=== PATIENT | female | born 1985 | race Caucasian/White ===

== ENCOUNTER 2017-07-10 21:27 | Inpatient (IN) | payer OTHER ==
[~2017-07-10] VITALS: Ht 167.6 cm; Wt 69.0 kg
[2017-07-11] VITALS (9 sets, daily range): BP systolic 90–129; BP diastolic 51–74; PULSE 98–128; RESP 16–34; TEMP 98.1–102; O2SAT 94–98
[2017-07-11] MEDS ORDERED: METO-309 PO (00:25)
[2017-07-11] MEDS ORDERED: OCUF0.3D LEFT EYE (00:49)
[2017-07-11] MEDS ORDERED: CEFTRIAXONE IM (00:49)
[2017-07-11] MEDS ORDERED: NYST15T TOPICAL (00:49)
[2017-07-11] MEDS ORDERED: ATRO1SOL11 LEFT EYE (00:49)
[2017-07-11] MEDS ORDERED: ISOPTO TEARS EACH EYE (00:49)
[2017-07-11] MEDS ORDERED: PRED1SUS LEFT EYE (00:49)
[2017-07-11] MEDS: SODIUM CHLOR 0.9% 1000 ML INJ 1,000 ML IV SCH ×3 (00:57→20:14)
[2017-07-11] MEDS ORDERED: NALOXONE HCL 0.4 MG/ML AMP IV PUSH PRN (01:00)
[2017-07-11] MEDS ORDERED: SODIUM CHLORIDE 0.9% FLUSH 10 ML FLUSH IV FLUSH PRN (01:00)
[2017-07-11] MEDS ORDERED: ONDANSETRON HCL 4 MG/2 ML VIAL IVP PRN (01:00)
[2017-07-11] MEDS ORDERED: METOPROLOL TARTRATE 50 MG TAB PO ONE (02:15)
--- NOTE | 2017-07-11 02:18 | HHI.HP ---
[facility] Service [facility] Primary Care Physician No Primary Care Physician Admission Diagnosis Binocular Iritis left eye . Diagnoses: Chief Complaint: Left eye visual loss Travel History International Travel<30 Days: No Contact w/Intl Traveler <30 Da: No History of Present Illness Ms. Luque is 31 y/o female with a history of untreated hepatitis C, IVDA, and tobacco abuse who was transferred from [facility] to [facility] for ophthalmology surgical evaluation by Dr. Kowalski. The patient is seen in her hospital room. She has been an inpatient at [facility] since 06/16/17 where she was being treated for tricuspid valve endocarditis and streptococcal septic shock. She reports she was initially seen at a hospital in [place] for pneumonia and was discharged from the ED with Zithromax Rx. She did not improve and went to [facility]. She reports that 1 day into her hospitalization, she developed respiratory failure and was intubated but eventually extubated. She is on a prolonged course of IV antibiotics. Her visual symptoms have been ongoing since one week ago when her left eyelid got "swollen" and she started to have visual deficits. She has been seen daily by an labor delivery rn at the other hospital. About three days ago, he determined that she would need surgery but they did not have a specialist available to perform the procedure she needs. She reports some right eye pain initially but then denies pain after EOM exam and penlight examination. Review of Systems Except as stated in HPI: all other systems reviewed are Neg Past Family Social History Past Medical History Hepatitis C - untreated IVDA Tobacco abuse Tricuspid valve endocarditis Sepsis Streptococcal septic shock Acute Respiratory failure Right pleural effusion s/p Thoracentesis . Past Surgical History Right thoracentesis . Reported Medications Reported Meds & Active Scripts Active Reported Pred Forte Opth 1% (Prednisolone Acetate Opth 1%) 1% Susp 1 Drop LEFT EYE Q4HR Ocuflox Opth Drops (Ofloxacin Opth Drops) 0.3 % Drops 1 Drop LEFT EYE QID [Isopto Tears 1.4%] 1 Drop EACH EYE QID [Ceftriaxone] 2 Mg IM DAILY Atropine Opth Drops 1% Soln 1 Drop LEFT EYE BID Lopressor (Metoprolol Tartrate) 50 Mg Tab 50 Mg PO TID . Allergies: Coded Allergies: No Known Allergies (Unverified , 07/11/17) Family History Sister with history of IVDA, no history of endocarditis . Social History Tobacco: last smoked 06/16/17 - plans to never start smoking again Alcohol: denies Illicit Drugs: IV heroin, last use 06/17/17 (while in hospital at [facility] in [place], [place]) - plans to never start using again . Physical Exam Vital Signs Vital Signs Date Time Temp Pulse Resp B/P (MAP) Pulse Ox O2 Delivery O2 Flow Rate FiO2 07/11/17 00:00 98.4 103 16 126/72 (90) 98 Physical Exam CONSTITUTIONAL: This is an awake, alert and oriented patient, in no apparent distress. INTEGUMENTARY: No rashes. Cool and dry. HEAD: Atraumatic. Normocephalic. EYES: No scleral icterus. Left eye ptosis, EOMI bilaterally, no photophobia with penlight exam, left visual field reported as dark with white wavy lines. Denies pain. ENT: Nose without bleeding, purulent drainage. NECK: Trachea midline. No JVD. CARDIOVASCULAR: Tachycardic rate, regular rhythm. +2 peripheral pulses. RESPIRATORY: Clear to auscultation. Breath sounds equal bilaterally. No wheezes , rales, or rhonchi. GASTROINTESTINAL: Abdomen soft, non-tender, nondistended. No guarding. MUSCULOSKELETAL: Extremities without clubbing, cyanosis, or edema. No calf tenderness. NEUROLOGICAL: Awake and alert. Motor and sensory grossly within normal limits. Normal speech. . Caprini VTE Risk Assessment Caprini VTE Risk Assessment: No/Low Risk (score <= 1) Caprini Risk Assessment Model Point Value = 1 Point Value = 2 Point Value = 3 Point Value = 5 Age 41-60 Minor surgery BMI > 25 kg/m2 Swollen legs Varicose veins or History of unexplained or recurrent spontaneous Oral contraceptives or hormone replacement Sepsis (< 1 month) Serious lung disease, including pneumonia (< 1 month) Abnormal pulmonary function Acute myocardial infarction Congestive heart failure (< 1 month) History of inflammatory bowel disease Medical patient at bed rest Age 61-74 Arthroscopic surgery Major open surgery (> 45 min) Laparoscopic surgery (> 45 min) Malignancy Confined to bed (> 72 hours) Immobilizing plaster cast Central venous access Age >= 75 History of VTE Family history of VTE Factor V Leiden Prothrombin [id number] Lupus anticoagulant Anticardiolipin antibodies Elevated serum homocysteine Heparin-induced thrombocytopenia Other congenital or acquired thrombophilia Stroke (< 1 month) Elective arthroplasty Hip, pelvis, or leg fracture Acute spinal cord injury (< 1 month) Prophylaxis Regimen Total Risk Factor Score Risk Level Prophylaxis Regimen 0-1 Low Early ambulation 2 Moderate Order ONE of the following: *Sequential Compression Device (SCD) *Heparin 5000 units SQ BID 3-4 Higher Order ONE of the following medications: *Heparin 5000 units SQ TID *Enoxaparin/Lovenox 40 mg SQ daily (WT < 150 kg, CrCl > 30 mL/min) *Enoxaparin/Lovenox 30 mg SQ daily (WT < 150 kg, CrCl > 10-29 mL/min) *Enoxaparin/Lovenox 30 mg SQ BID (WT < 150 kg, CrCl > 30 mL/min) AND/OR *Sequential Compression Device (SCD) 5 or more Highest Order ONE of the following medications: *Heparin 5000 units SQ TID (Preferred with Epidurals) *Enoxaparin/Lovenox 40 mg SQ daily (WT < 150 kg, CrCl > 30 mL/min) *Enoxaparin/Lovenox 30 mg SQ daily (WT < 150 kg, CrCl > 10-29 mL/min) *Enoxaparin/Lovenox 30 mg SQ BID (WT < 150 kg, CrCl > 30 mL/min) AND *Sequential Compression Device (SCD) Assessment and Plan Assessment and Plan Ms. Luque is 31 y/o female with a history of untreated hepatitis C, IVDA, and tobacco abuse who was transferred from [facility] to [facility] for ophthalmology surgical evaluation by Dr. Kowalski. Tricuspid valve endocarditis - Dr. Mcginnis discussed case with hospitalist from [facility] the transferring facility - Continue Ceftriaxone 2 gram IV q24h until 07/19 per ID at [facility] - continuous cardiac telemetry to monitor for arrhythmia Uveitis and endogenous endophthalmitis - patient was seen by labor delivery rn at [facility] - continue eye drops per transfer documentation Binocular Iritis left eye - consult Dr. Kowalski - plan for surgery in a.m. - NPO DVT prophylaxis - ambulatory . Discussed Condition With Dr. Mcginnis, Charge Nurse, RN, and patient . Physician Certification 2 Midnight Certification Type: Admission for Inpatient Services Order for Inpatient Services The services are ordered in accordance with Medicare regulations or non- Medicare payer requirements, as applicable. In the case of services not specified as inpatient-only, they are appropriately provided as inpatient services in accordance with the 2-midnight benchmark. Estimated LOS (days): 2 days is the estimated time the patient will need to remain in the hospital, assuming treatment plan goals are met and no additional complications. Post-Hospital Plan: Other (specify) (return to [facility]) Desiree Dove Jul 11, 2017 02:18
[2017-07-11] MEDS: ACETAMINOPHEN/HYDROcodone 325 MG/5 MG TAB PO PRN ×3 (02:33→20:02)
[2017-07-11] MEDS: ALPRAZolam 0.25 MG TAB PO PRN ×2 (05:23→17:58)
[2017-07-11] MEDS: prednisoLONE ACETATE 1% OPHT SUSP 5 ML BTL LEFT EYE SCH ×5 (05:23→20:03)
[2017-07-11] MEDS: ARTIFICIAL TEARS OPTH SOLN 15 ML BTL EACH EYE SCH ×4 (08:28→20:04)
[2017-07-11] MEDS: OFLOXACIN 0.3% OPTH SOLN 5 ML BTL LEFT EYE SCH ×3 (08:28→17:58)
[2017-07-11] MEDS: METOPROLOL TARTRATE 50 MG TAB PO SCH ×3 (08:29→17:58)
[2017-07-11] MEDS: ACETAMINOPHEN 325 MG TAB PO PRN ×2 (08:29→20:01)
[2017-07-11] MEDS: cefTRIAXone INJ 2,000 MG in SODIUM CHLORIDE 0.9% INJ 100 ML IV SCH (08:30)
[2017-07-11] MEDS: SODIUM CHLORIDE 0.9% FLUSH 10 ML FLUSH IV FLUSH SCH ×2 (08:30→20:14)
[2017-07-11] MEDS ORDERED: ATROPINE SULFATE 1% OPHT SOLN 2 ML BTL LEFT EYE SCH (09:00)
[2017-07-11] MEDS ORDERED: NYSTATIN 100,000 UNIT/GM CREAM 15 GM TOPICAL SCH (09:00)
[2017-07-11] MEDS ORDERED: PROPOFOL 200 MG/20 ML AMP IV ONE (12:00)
[2017-07-11] MEDS ORDERED: LIDOCAINE HCL 1% PF 5 ML SYRINGE OTHER ONE (12:00)
[2017-07-11] MEDS ORDERED: ONDANSETRON HCL 4 MG/2 ML VIAL IV PUSH ONE (12:00)
[2017-07-11] MEDS ORDERED: PHENYLEPH/NS 1000 MCG/10 ML SYR IV ONE (12:00)
--- NOTE | 2017-07-11 18:39 | HHI.PR ---
Addendum to Inpatient Note Additional Information Patient was seen and examined. Patient was transferred from another hospital for ophthalmology evaluation and possible surgical intervention. Discussed with day care home mother as well as multiple other people including case management regarding management of this patient. Per day care home mother request, after discussing with compliance as well as case management, patient was transported to the day care home mother office. If day care home mother cleared for discharge, patient can be discharged back to the original hospital where she came from. Continue current management. Alecia Zarate DO Jul 11, 2017 6:39 pm
[2017-07-11] MEDS ORDERED: LACTATED RINGER'S 1000 ML IV PRN (20:15)
[2017-07-11] MEDS ORDERED: POVIDONE IODINE 5% (ANTISEPSIS KIT) 4 APPLICATIONS EACH NARE PRN (20:15)
[2017-07-11] MEDS ORDERED: CHLORHEXIDINE GLUCONATE 2 % 1 PACK (2 CLOTHS) TOPICAL PRN (20:15)
[2017-07-11] MEDS: PHENYLEPHRINE HCL 2.5 % OPTH SOLN 15 ML BTL LEFT EYE SCH ×4 (20:50→21:36)
[2017-07-11] MEDS ORDERED: BALANCED SALT SOLN OPHT IRRIG 15 ML BTL ONE (20:51)
[2017-07-11] MEDS ORDERED: DEXAMETHASONE SOD PHOS 4 MG/ML VIAL ONE (20:51)
[2017-07-11] MEDS ORDERED: TRIAMCINOLONE ACETONIDE 40 MG/ML VIAL ONE (20:51)
[2017-07-11] MEDS ORDERED: ceFAZolin INJ 1,000 MG VIAL ONE (20:51)
[2017-07-11] MEDS ORDERED: TOBRAMYCIN/DEXAMETHASONE OPTH OINT 3.5 GM TUBE ONE (20:51)
[2017-07-11] MEDS ORDERED: STERILE WATER FOR INJECTION 20 ML VIAL ONE (20:51)
[2017-07-11] MEDS ORDERED: EPINEPHrine HCL (1:1000) 1 MG/ML VIAL ONE ×2 (20:52→22:25)
[2017-07-11] MEDS: CYCLOPENTOLATE HCL 1% OPHT SOLN 2 ML BTL LEFT EYE SCH ×4 (20:52→21:36)
[2017-07-11] MEDS: TROPICAMIDE 1% OPHT SOLN 15 ML BTL LEFT EYE SCH ×4 (20:52→21:36)
[2017-07-11] MEDS: ATROPINE SULFATE 1% OPHT SOLN 2 ML BTL LEFT EYE SCH ×4 (20:53→21:36)
[2017-07-11] MEDS ORDERED: CEFTAZIDIME LEFT EYE ONE (23:00)
[2017-07-11] MEDS ORDERED: [UNRECOGNIZED DRUG - OTHER] LEFT EYE ONE (23:00)
[2017-07-11] MEDS ORDERED: [UNRECOGNIZED DRUG - OTHER] LEFT EYE ONE (23:00)
[2017-07-11] MEDS ORDERED: VANCOMYCIN 1 MG/0.1 ML LEFT EYE ONE (23:00)
[2017-07-12] MEDS ORDERED: MORPHINE SULFATE 2 MG/ML SYRINGE ONE (01:53)
[2017-07-12] MEDS ORDERED: DO NOT ADM ANY ANTICOAGULANT DRUGS PRN (02:00)
[2017-07-12 02:30] VITALS: BP 110/69; PULSE 112; RESP 16; TEMP 98.4; O2SAT 94
--- NOTE | 2017-07-12 02:30 | MP ---
cc: Shivam Kowalski MD DATE OF OPERATION: PREOPERATIVE DIAGNOSIS: Severe endogenous endophthalmitis, dense cataract, iris/pupil synechiae, iris [place], no light perception vision left eye, total retinal detachment. POSTOPERATIVE DIAGNOSIS: Severe endogenous endophthalmitis, dense cataract, iris/pupil synechiae, iris [place], no light perception vision left eye, total retinal detachment. PROCEDURE PERFORMED: Pars plana vitrectomy, pars plana lensectomy, intravitreal antibiotic injection, retinal detachment repair, left eye. ANESTHESIA: Dr. Hall, general. COMPLICATIONS: None. ESTIMATED BLOOD LOSS: Less than 1 mL. INDICATIONS FOR PROCEDURE: This patient was hospitalized in [place] with a streptococcal sepsis, was in a coma for approximately 1 week, also found to have endocarditis and pneumonia. When the patient awoke from the coma, patient had no vision in her left eye. Approximately 1 week after awakening from her coma, the patient was transferred to [facility] to address her ocular condition. The patient was seen, confirmed no light perception vision in her left eye. 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 Treatment options were discussed with the patient. The patient adamantly refused intravitreal antibiotic injection to clear the infection. The patient remains on IV antibiotic therapy without resolution. Pars plana vitrectomy with lensectomy and intravitreal antibiotic placement was planned in hopes to clear infection. The patient understands the possibility and likelihood of remaining without vision given the severity and chronicity of her condition. The patient again reports no light perception since awakening from a coma approximately 1 week ago, and no light perception was confirmed in the clinic. DESCRIPTION OF PROCEDURE: The patient was brought to the operating room. General anesthesia was established after informed consent was obtained. The left eye was prepped and draped in sterile fashion. Betadine in the conjunctival fornix. A 3-port pars plana vitrectomy was established with self-retaining infusion cannula. The posterior pole was attempted to be visualized using the Biome. Visualization was very limited, with dense cataract. The cataract was removed with pars plana lensectomy using the vitrector. The anterior vitreous was also removed with vitrectomy. The lens capsule was removed with end grasping forceps. Dense vitreous debris was carefully removed using the vitrector and light pipe. Vitreous tractional bands were also removed and freed from the peripheral and mid peripheral retina using vitrectomy and end grasping forceps. Subretinal and retinal infiltrates were seen in the mid periphery and peripheral retina. A subretinal, retinal and preretinal mass with necrotic debris and necrotic holes were seen centered through the macula. The preretinal component was carefully debulked, with attention paid to avoid undue retinal traction. Scleral depressed examination revealed some far peripheral retinal bands, which were removed with vitrectomy. Air-fluid exchange was carried out and subretinal fluid removed. Peripheral and mid peripheral retina was reattached. The macula was reattached with some necrotic debris remaining. Subretinal and retinal infiltrates were seen in the mid peripheral and peripheral retina. Vancomycin 0.25 mg was given, ceftazidime 0.5 mg was given, both intravitreally. Intravitreal silicone oil was placed. Inferior peripheral iridectomy was made. Trocars were removed and sclerotomy was closed. Conjunctiva was reapproximated with 6-0 plain gut after sclerotomy was closed with 7-0 Vicryl. Subconjunctival injection of Ancef and dexamethasone was given. The eye was patched with tobramycin ointment. The patient was brought to the recovery room in stable condition. The patient will maintain a facedown position when able. The patient will continue followup with [facility] and doctors local to the [facility] when able. MD ZIA Kelsey/VENKATESH , 01:53 AM , 02:29 AM LEX
[2017-07-12] MEDS ORDERED: ACETAMINOPHEN/HYDROcodone 325 MG/10 MG TAB PO ONE (02:45)
[2017-07-12] MEDS: SODIUM CHLOR 0.9% 1000 ML INJ 1,000 ML IV SCH ×2 (03:56→16:29)
[2017-07-12] MEDS: ACETAMINOPHEN/HYDROcodone 325 MG/5 MG TAB PO PRN ×3 (07:58→20:04)
[2017-07-12] MEDS: METOPROLOL TARTRATE 50 MG TAB PO SCH ×3 (07:59→17:02)
[2017-07-12] MEDS: cefTRIAXone INJ 2,000 MG in SODIUM CHLORIDE 0.9% INJ 100 ML IV SCH (07:59)
[2017-07-12 08:00] VITALS: BP 106/58; PULSE 113; RESP 22; TEMP 98.4; O2SAT 96
[2017-07-12] MEDS: SODIUM CHLORIDE 0.9% FLUSH 10 ML FLUSH IV FLUSH SCH ×2 (08:09→20:10)
[2017-07-12] MEDS ORDERED: ATROPINE SULFATE 1% OPHT SOLN 5 ML BTL LEFT EYE SCH (09:00)
[2017-07-12] MEDS ORDERED: prednisoLONE ACETATE 1% OPHT SUSP 5 ML BTL LEFT EYE SCH ×2 (09:00)
[2017-07-12 10:53] LABS: AUTOMATED NEUTROPHIL # 5.1 TH/MM3 (1.8-7.7); BASOPHIL % 0.5 % (0.0-2.0); EOSINOPHIL % 0.2 % (0.0-4.0); HEMATOCRIT 26.8 % (35.0-46.0); HEMOGLOBIN 8.7 GM/DL (11.6-15.3); LYMPH % 26.6 % (9.0-44.0); LYMPHOCYTE # 2.1 TH/MM3 (1.0-4.8); MEAN CELL VOLUME 81.6 FL (80.0-100.0); MEAN CORPUSCULAR HEMOGLOBIN 26.4 PG (27.0-34.0); MEAN CORPUSCULAR HGB CONC 32.4 % (32.0-36.0); MEAN PLATELET VOLUME 7.1 FL (7.0-11.0); MONO % 7.6 % (0.0-8.0); MONOCYTE # 0.6 TH/MM3 (0-0.9); NEUT % 65.1 % (16.0-70.0); PLATELET COUNT 267 TH/MM3 (150-450); RED BLOOD COUNT 3.28 MIL/MM3 (4.00-5.30); RED CELL DISTRIBUTION WIDTH 18.4 % (11.6-17.2); WHITE BLOOD COUNT 7.9 TH/MM3 (4.0-11.0)
[2017-07-12 10:58] LABS: ALKALINE PHOSPHATASE 151 U/L (45-117); ALT (GPT) 24 U/L (10-53); TOTAL BILIRUBIN ADULT 1.1 MG/DL (0.2-1.0); TOTAL PROTEIN 7.7 GM/DL (6.4-8.2)
[2017-07-12] MEDS: ALPRAZolam 0.25 MG TAB PO PRN ×2 (11:07→23:04)
[2017-07-12 11:08] LABS: ALBUMIN 1.9 GM/DL (3.4-5.0); AST (GOT) 44 U/L (15-37); BICARBONATE 23.3 MEQ/L (21.0-32.0); BLOOD UREA NITROGEN 11 MG/DL (7-18); CALCIUM 8.1 MG/DL (8.5-10.1); CHLORIDE 107 MEQ/L (98-107); CREATININE 0.67 MG/DL (0.50-1.00); GLOMERULAR FILTRATION RATE 102 ML/MIN (>89); GLUCOSE,RANDOM 118 MG/DL (74-106); SODIUM (NA) 139 MEQ/L (136-145)
[2017-07-12] MEDS: ARTIFICIAL TEARS OPTH SOLN 15 ML BTL EACH EYE SCH ×4 (11:27→20:07)
[2017-07-12 12:00] VITALS: BP 92/65; PULSE 105; RESP 24; TEMP 98.6; O2SAT 94
--- NOTE | 2017-07-12 12:09 | HHI.PR ---
Subjective Remarks Follow-up for severe endogenous endophthalmitis, left retinal detachment, tricuspid endocarditis, IV drug use. Patient is currently doing well. She underwent surgical intervention by ophthalmology on 07/12/2017. Currently complains of inadequate pain management. No fever or chills. Objective Vitals Vital Signs Date Time Temp Pulse Resp B/P (MAP) Pulse Ox O2 Delivery O2 Flow Rate FiO2 07/12/17 08:00 98.4 113 22 106/58 (74) 96 07/12/17 02:30 98.4 112 16 110/69 (83) 94 07/12/17 02:00 112 21 110/60 (77) 95 Room Air 07/12/17 01:45 98.4 116 22 108/56 (73) 97 Room Air 07/11/17 21:25 98.5 07/11/17 20:00 102.0 110 16 104/61 (75) 94 07/11/17 12:00 98.1 98 16 90/51 (64) 94 I/O 07/11/17 07/11/17 07/11/17 07/12/17 07/12/17 07/12/17 07:00 15:00 23:00 07:00 15:00 23:00 Intake Total 0 ml 1100 ml 1340 ml 336 ml Balance 0 ml 1100 ml 1340 ml 336 ml Intake Oral 0 ml 340 ml 236 ml IV Total 1100 ml 100 ml Other 1000 ml # Voids 1 3 2 # Bowel Movements 0 0 0 Result Diagram: 07/12/17 1009 07/12/17 1009 Objective Remarks GENERAL: Alert, oriented 3, NAD. SKIN: Warm and dry. HEAD: Normocephalic. EYES: No scleral icterus. Left eye covered with dressing. NECK: Supple, trachea midline. No JVD or lymphadenopathy. CARDIOVASCULAR: Regular rate and rhythm without murmurs, gallops, or rubs. RESPIRATORY: Breath sounds equal bilaterally. No accessory muscle use. GASTROINTESTINAL: Abdomen soft, non-tender, nondistended. MUSCULOSKELETAL: No cyanosis, or edema. BACK: Nontender without obvious deformity. No CVA tenderness. Procedures 07/12/2017 Pars plana vitrectomy, pars plana lensectomy, intravitreal antibiotic injection, retinal detachment repair, left eye. A/P Assessment and Plan Ms. Luque is 31 y/o female with a history of untreated hepatitis C, IVDA, and tobacco abuse who was transferred from [facility] to [facility] for ophthalmology surgical evaluation by Dr. Kowalski. Tricuspid valve endocarditis - Dr. Mcginnis discussed case with hospitalist from [facility] the transferring facility - Continue Ceftriaxone 2 gram IV q24h until 07/19 per ID at [facility] - Acetaminophen, [place] as needed for pain. Increase frequency of [place]. Uveitis and endogenous endophthalmitis Left Retinal detachment - patient was seen by warehouse sorter at [facility] - Patient was evaluated by warehouse sorter Dr. Kowalski. Patient underwent ophthalmological surgical intervention on 07/12/2017. Full code. Ambulation. Discharge plan: Probable discharge back to [facility] once ophthalmologic clears for discharge. Alecia Zarate DO Jul 12, 2017 12:09 pm
[2017-07-12 12:36] VITALS: O2SAT 95
[2017-07-12] MEDS: prednisoLONE ACETATE 1% OPHT SUSP 5 ML BTL LEFT EYE SCH ×3 (13:54→20:08)
[2017-07-12] MEDS: ATROPINE SULFATE 1% OPHT SOLN 5 ML BTL LEFT EYE SCH ×2 (13:56→20:08)
[2017-07-12] MEDS: MOXIFLOXACIN 0.5% OPHT SOLN 3 ML BTL LEFT EYE SCH ×3 (13:58→20:08)
[2017-07-12 16:00] VITALS: BP 94/61; PULSE 113; RESP 20; TEMP 101; O2SAT 96
[2017-07-12] MEDS: ACETAMINOPHEN 325 MG TAB PO PRN (17:02)
[2017-07-12] MEDS: TOBRAMYCIN/DEXAMETHASONE OPTH OINT 3.5 GM TUBE LEFT EYE SCH (17:04)
--- NOTE | 2017-07-12 17:17 | EKG ---
Date Performed: 07/11/2017 Time Performed: 20:32:09 PTAGE: 31 years EKG: SINUS TACHYCARDIA WITH OCCASIONAL VENTRICULAR PREMATURE COMPLEXES NONSPECIFIC T-WAVE ABNORM ALITY ABNORMAL RHYTHM ECG NO PREVIOUS TRACING DOCTOR: Huseyin Trevizo Interpretating Date/Time 07/12/2017 17:16:18
[2017-07-12 20:00] VITALS: BP 100/58; PULSE 105; RESP 17; TEMP 98.7; O2SAT 94
[2017-07-12] MEDS: guaiFENesin/DEXTROMETHORPHAN 200 MG/20 MG/10 ML CUP PO PRN ×2 (20:04→23:04)
[2017-07-13] VITALS (8 sets, daily range): BP systolic 103–128; BP diastolic 58–88; PULSE 101–130; RESP 17–22; TEMP 98.2–103; O2SAT 92–95
[2017-07-13] MEDS: ACETAMINOPHEN 325 MG TAB PO PRN ×3 (02:00→23:57)
[2017-07-13] MEDS: ACETAMINOPHEN/HYDROcodone 325 MG/5 MG TAB PO PRN ×4 (02:00→22:53)
[2017-07-13] MEDS: guaiFENesin/DEXTROMETHORPHAN 200 MG/20 MG/10 ML CUP PO PRN ×6 (03:02→23:57)
--- NOTE | 2017-07-13 03:56 | RADRPT ---
EXAM DATE/TIME: 07/13/2017 03:20 [facility] COMPARISON: No previous studies available for comparison. INDICATIONS : Cough. MEDICAL HISTORY : None. SURGICAL HISTORY : None. ENCOUNTER: Subsequent ACUITY: 1 day PAIN SCORE: Non-responsive. LOCATION: Bilateral chest FINDINGS: Single AP view of the chest. Bilateral mid to lower lung zone opacity and pulmonary vasculature indis tinctness. Prominence of the central pulmonary vasculature. Moderate cardiac silhouette enlargement. Small bilateral pleural effusions. No evidence of pneumothorax. CONCLUSION: Cardiac silhouette enlargement, bilateral pulmonary opacity likely representing mild pulmonary edema, and bilateral small pleural effusions. Rolf Carvajal MD on July 13, 2017 at 3:54 Board Certified Radiologist. This report was verified electronically.
[2017-07-13] MEDS: ARTIFICIAL TEARS OPTH SOLN 15 ML BTL EACH EYE SCH ×4 (07:35→20:16)
[2017-07-13] MEDS: METOPROLOL TARTRATE 50 MG TAB PO SCH ×3 (07:36→17:54)
[2017-07-13] MEDS: cefTRIAXone INJ 2,000 MG in SODIUM CHLORIDE 0.9% INJ 100 ML IV SCH (07:37)
[2017-07-13] MEDS: SODIUM CHLORIDE 0.9% FLUSH 10 ML FLUSH IV FLUSH SCH ×2 (07:37→20:23)
[2017-07-13] MEDS: prednisoLONE ACETATE 1% OPHT SUSP 5 ML BTL LEFT EYE SCH ×4 (07:39→20:17)
[2017-07-13] MEDS: TOBRAMYCIN/DEXAMETHASONE OPTH OINT 3.5 GM TUBE LEFT EYE SCH ×3 (07:40→17:56)
[2017-07-13] MEDS: MOXIFLOXACIN 0.5% OPHT SOLN 3 ML BTL LEFT EYE SCH ×4 (07:40→20:16)
[2017-07-13] MEDS: ATROPINE SULFATE 1% OPHT SOLN 5 ML BTL LEFT EYE SCH ×2 (07:40→20:16)
--- NOTE | 2017-07-13 10:57 | HHI.PR ---
Subjective Remarks Follow-up for severe endogenous endophthalmitis, left retinal detachment, tricuspid endocarditis, IV drug use. Patient is resting in bed, eye patch is discontinued per Vice President Of Finance. She has been having persistent fever, cough. Objective Vitals Vital Signs Date Time Temp Pulse Resp B/P (MAP) Pulse Ox O2 Delivery O2 Flow Rate FiO2 07/13/17 08:00 100.8 130 18 128/61 (83) 95 07/13/17 04:00 99.3 129 17 106/62 (77) 92 07/13/17 02:02 102.7 07/13/17 00:00 98.2 109 17 127/88 (101) 93 07/12/17 20:00 98.7 105 17 100/58 (72) 94 07/12/17 16:00 101.0 113 20 94/61 (72) 96 07/12/17 12:36 95 07/12/17 12:00 98.6 105 24 92/65 (74) 94 I/O 07/12/17 07/12/17 07/12/17 07/13/17 07/13/17 07/13/17 07:00 15:00 23:00 07:00 15:00 23:00 Intake Total 1340 ml 336 ml 2200 ml 540 ml Balance 1340 ml 336 ml 2200 ml 540 ml Intake Oral 340 ml 236 ml 2200 ml 240 ml IV Total 100 ml 300 ml Other 1000 ml # Voids 2 6 3 # Bowel Movements 0 1 Result Diagram: 07/12/17 1009 07/12/17 1009 Imaging Last Impressions Chest X-Ray 07/13/17 0000 Signed Impressions: Service Date/Time: Thursday, July 13, 2017 03:20 - CONCLUSION: Cardiac silhouette enlargement, bilateral pulmonary opacity likely representing mild pulmonary edema, and bilateral small pleural effusions. Rolf Carvajal MD Objective Remarks GENERAL: Alert, oriented 3, NAD. SKIN: Warm and dry. HEAD: Normocephalic. EYES: No scleral icterus. Left eye covered with dressing. NECK: Supple, trachea midline. No JVD or lymphadenopathy. CARDIOVASCULAR: Tachycardic without murmurs, gallops, or rubs. RESPIRATORY: Moderate air entry, right lung diminished breath sound. No accessory muscle use. GASTROINTESTINAL: Abdomen soft, non-tender, nondistended. MUSCULOSKELETAL: No cyanosis, or edema. BACK: Nontender without obvious deformity. No CVA tenderness. Procedures 07/12/2017 Pars plana vitrectomy, pars plana lensectomy, intravitreal antibiotic injection, retinal detachment repair, left eye. A/P Assessment and Plan Ms. Luque is 31 y/o female with a history of untreated hepatitis C, IVDA, and tobacco abuse who was transferred from [facility] to [facility] for ophthalmology surgical evaluation by Dr. Kowalski. Tricuspid valve endocarditis - Dr. Mcginnis discussed case with hospitalist from [facility] the transferring facility - Continue Ceftriaxone 2 gram IV q24h until 07/19 per ID at [facility] - Acetaminophen, [place] as needed for pain. Increase frequency of [place]. Sepsis (Fever above 101, resp rate over 20 on 07/12/2017, tricuspid endocarditis) . - Will obtain blood cultures, lactic acid, CBC, UA today - CT chest without contrast and if needed, will obtain thoracentesis. - Infection disease consult. Uveitis and endogenous endophthalmitis Left Retinal detachment - patient was seen by fire lookout at [facility] - Patient was evaluated by fire lookout Dr. Kowalski. Patient underwent ophthalmological surgical intervention on 07/12/2017. Full code. Ambulation. Alecia Zarate DO Jul 13, 2017 10:57 am
[2017-07-13] MEDS: ALPRAZolam 0.25 MG TAB PO PRN ×2 (10:59→22:52)
--- NOTE | 2017-07-13 11:49 | RADRPT ---
EXAM DATE/TIME: 07/13/2017 11:20 [facility] COMPARISON: CHEST SINGLE AP, July 13, 2017, 3:20. INDICATIONS : Abnormal chest x-ray. RADIATION DOSE: 8.69 CTDIvol (mGy) MEDICAL HISTORY : Encephalitis. Hepatitis C. tricuspid endocarditis SURGICAL HISTORY : None. ENCOUNTER: Initial ACUITY: 1 day PAIN SCALE: 0/10 LOCATION: Bilateral chest TECHNIQUE: Volumetric scanning of the chest was performed. Using automated exposure control and adjustment of t he mA and/or kV according to patient size, radiation dose was kept as low as reasonably achievable to obtain optimal diagnostic quality images. DICOM format image data is available electronically for r eview and comparison. Follow-up recommendations for detected pulmonary nodules are based at a minimum on nodule size and pa tient risk factors according to Fleischner Society Guidelines. FINDINGS: LUNGS: The lungs are significant for a large heterogeneous fluid collection involving the right lower lobe w ith a large air-fluid level. Findings are consistent with a large abscess. There is adjacent compress mabel atelectasis of the residual aerated portion of the right lower lobe. There is a small left-sided pleural effusion present. Multifocal airspace consolidation involving the right upper lobe, right low er lobe left upper lobe and left lower lobe. PLEURAE: Small left-sided pleural effusion. The fluid identified in the right appears to be within the substan ce of the right lower lobe. MEDIASTINUM: The heart and great vessels demonstrate no acute abnormality. There is no mediastinal or hilar lymph adenopathy. AXILLAE: Within normal limits. No lymphadenopathy. MUSCULOSKELETAL: Within normal limits for patient age. MISCELLANEOUS: The visualized upper abdominal organs demonstrate no acute abnormality. CONCLUSION: Multifocal airspace consolidation and small left lower lobe pleural effusion. Large abscess involving the right lower lobe. Sravanthi Lane MD on July 13, 2017 at 11:42 Board Certified Radiologist. This report was verified electronically.
[2017-07-13 12:46] LABS: AUTOMATED NEUTROPHIL # 3.5 TH/MM3 (1.8-7.7); BASOPHIL % 0.2 % (0.0-2.0); EOSINOPHIL % 0.7 % (0.0-4.0); HEMATOCRIT 25.2 % (35.0-46.0); HEMOGLOBIN 8.2 GM/DL (11.6-15.3); LYMPH % 33.4 % (9.0-44.0); LYMPHOCYTE # 2.1 TH/MM3 (1.0-4.8); MEAN CORPUSCULAR HEMOGLOBIN 26.9 PG (27.0-34.0); MEAN CORPUSCULAR HGB CONC 32.8 % (32.0-36.0); MEAN PLATELET VOLUME 7.1 FL (7.0-11.0); MONO % 9.3 % (0.0-8.0); MONOCYTE # 0.6 TH/MM3 (0-0.9); NEUT % 56.4 % (16.0-70.0); PLATELET COUNT 229 TH/MM3 (150-450); RED BLOOD COUNT 3.07 MIL/MM3 (4.00-5.30); RED CELL DISTRIBUTION WIDTH 17.8 % (11.6-17.2); WHITE BLOOD COUNT 6.2 TH/MM3 (4.0-11.0)
[2017-07-13 14:42] LABS: LACTIC ACID SEPSIS PROTOCOL 2.2 mmol/L (0.4-2.0)
--- NOTE | 2017-07-13 16:05 | PD.ID.CON ---
History of Present Illness Service Infectious disease Consult Requested By Hospitalist service Reason for Consult Evaluation and management of tricuspid valve endocarditis, persistent fevers Primary Care Physician No Primary Care Physician Diagnoses: History of Present Illness Patient seen and examined with Dr. Gabriel This is a 31-year-old female with past medical history significant for hepatitis C-treatment luis and IV drug use who was transferred from [facility] to [facility] for ophthalmology surgical evaluation for severe left eye endogenous endophthalmitis. Patient was admitted to [facility] on 06/16/17 for septic emboli, sepsis, endocarditis and impending respiratory failure. She has been treated for tricuspid valve endocarditis and streptococcal septic shock. Reportedly, patient was initially seen at [facility] for pneumonia and was discharged from the ED with a Zithromax prescription. After failing to improve, she went went to [facility] and with in a day of her hospitalization developed respiratory failure and required intubation. Blood culture positive for Streptococcus mitis. She underwent a US guided thoracentesis right side with 1000ml of turbid serosanguineous fluid removed. She was treated with IV Ceftriaxone and per her discharge instructions, she was to continue with IV ceftriaxone through . Approximately one week ago, she began to have visual deficits in the left eye with swelling. She was seen daily by machine silk screen printer at the other facility and 3 days ago it was determined that she needed surgical intervention with subsequent transfer to our facility for ophthalmology surgical evaluation by Dr. Kowalski. 07/12/17, patient underwent Pars plana vitrectomy, pars plana lensectomy, intravitreal antibiotic injection, retinal detachment repair, left eye performed by Dr. Kowalski. During hospitalization here at [facility], she's had persistent cough and fevers. Infectious disease consultation was requested for evaluation and management of persistent fevers and tricuspid valve endocarditis. Patient is currently awake and alert lying in bed. She is a poor historian and much of the medical history is obtained from review of previous medical records and our EMR. She complains of fever, chills and sweats. She complains of persistent cough with brownish sputum production. She has difficulty with breathing. She denies any chest pain. Currently, her fever is 103. She is tachycardic with a heart rate of 114. White count is 6.2. Blood cultures are pending. Lactic acid is 2.2. (Lashon Freeman) Review of Systems Except as stated in HPI: all other systems reviewed are Neg (Lashon Freeman) Past Family Social History Allergies: Coded Allergies: No Known Allergies (Unverified , 07/11/17) Past Medical History IVDU severe endogenous endophthalmitis, left eye retinal detachment, left eye Hepatitis C, treatment luis Tricuspid valve endocarditis Streptococcal septic shock Sepsis Acute respiratory failure Right pleural effusion status post thoracentesis Past Surgical History Right thoracentesis Pars plana vitrectomy, pars plana lensectomy, intravitreal antibiotic injection, retinal detachment repair, left eye. Reported Medications Pred Forte Opth 1% (Prednisolone Acetate Opth 1%) 1% Susp 1 Drop LEFT EYE Q4HR Ocuflox Opth Drops (Ofloxacin Opth Drops) 0.3 % Drops 1 Drop LEFT EYE QID [Isopto Tears 1.4%] 1 Drop EACH EYE QID [Ceftriaxone] 2 Mg IM DAILY Atropine Opth Drops 1% Soln 1 Drop LEFT EYE BID Lopressor (Metoprolol Tartrate) 50 Mg Tab 50 Mg PO TID Active Ordered Medications Current Medications Medications (Trade) Dose Ordered Sig/Armin Route Start Time Stop Time Status Last Admin (NS Flush) 2 ml UNSCH PRN IV FLUSH 07/11/17 01:00 (NS Flush) 2 ml BID IV FLUSH 07/11/17 09:00 07/13/17 07:37 (Zofran Inj) 4 mg Q6H PRN IVP 07/11/17 01:00 (Narcan Inj) 0.4 mg UNSCH PRN IV PUSH 07/11/17 01:00 Ceftriaxone Sodium 2000 mg/ Sodium Chloride 100 ml @ 200 mls/hr Q24H IV 07/11/17 09:00 07/19/17 09:00 07/13/17 07:37 (Xanax) 0.25 mg Q12H PRN PO 07/11/17 02:30 07/13/17 10:59 (Tylenol) 650 mg Q4H PRN PO 07/11/17 02:30 07/13/17 02:00 (Lopressor) 50 mg TID PO 07/11/17 09:00 07/13/17 12:19 (Ocuflox 0.3% Opth Soln) 1 drop QID LEFT EYE 07/11/17 09:00 Future Hold 07/11/17 17:58 (Tears Naturale Opth Soln) 1 drop QID EACH EYE 07/11/17 09:00 07/12/17 11:27 (Vigamox 0.5% Opht Soln) 1 drop QID LEFT EYE 07/12/17 13:00 07/13/17 12:19 (Betadine 5% Antisepsis Kit) 1 applic OFFICE ELECTRICIAN PRN EACH NARE 07/11/17 20:15 07/14/17 20:14 (Pred Forte 1% Opth Susp) 1 drop QID LEFT EYE 07/12/17 13:00 07/13/17 12:21 (Isopto Atropine 1% Opth Soln) 1 drop BID LEFT EYE 07/12/17 13:00 07/13/17 07:40 ([place] 5-325 Mg) 1 tab Q6H PRN PO 07/12/17 12:00 07/13/17 14:58 (Tobradex Opth Oint) 1 applic TID LEFT EYE 07/12/17 18:00 07/13/17 12:20 (Robitussin Dm 200-20 Mg/10 ml Liq) 10 ml Q4H PRN PO 07/12/17 20:00 07/13/17 12:19 Family History Sister, IVDU Social History Patient has a history of tobacco use. She denies any alcohol use. She has a history of IVDU heroin and Morphine, last used 06/17/17 (while in hospital at [facility] in [place], [place]) (Lashon Freeman) Physical Exam Vital Signs Vital Signs Date Time Temp Pulse Resp B/P (MAP) Pulse Ox O2 Delivery O2 Flow Rate FiO2 07/13/17 13:09 93 21 07/13/17 12:00 99.5 114 20 103/69 (80) 93 07/13/17 08:00 100.8 130 18 128/61 (83) 95 07/13/17 04:00 99.3 129 17 106/62 (77) 92 07/13/17 02:02 102.7 07/13/17 00:00 98.2 109 17 127/88 (101) 93 07/12/17 20:00 98.7 105 17 100/58 (72) 94 07/12/17 16:00 101.0 113 20 94/61 (72) 96 Physical Exam GENERAL: This is a well-nourished, well-developed thin young female patient, in no apparent distress. Awake and alert. SKIN: No rashes, ecchymoses or lesions. Very warm to the touch. HEAD: Atraumatic. Normocephalic. No temporal or scalp tenderness. EYES: Pupil equal round and reactive right eye. Extraocular motions intact right eye. No scleral icterus, injection or drainage right eye. Left eye not assessed due to recent surgery. ENT: Nose without bleeding, purulent drainage. Throat without erythema, tonsillar hypertrophy or exudate. Uvula midline. Airway patent. NECK: Trachea midline. No lymphadenopathy. Supple, nontender, no meningeal signs. CARDIOVASCULAR: Tachycardic with 4-5/6 systolic murmur. RESPIRATORY: Diminished breath sounds on the right with crepitance noted in right lung base. No accessory muscle use. GASTROINTESTINAL: Abdomen soft, non-tender, nondistended. No hepato-splenomegaly , or palpable masses. No guarding. MUSCULOSKELETAL: Extremities without clubbing, cyanosis, or edema. No joint tenderness, effusion, or edema noted. No calf tenderness. NEUROLOGICAL: Awake and alert. Cranial nerves II through XII grossly intact. Motor and sensory grossly within normal limits. Normal speech. PSYCHIATRIC: Appropriate mood and affect. Normal judgment and insight. Laboratory Laboratory Tests Test 07/13/17 12:00 07/13/17 14:13 White Blood Count 6.2 Red Blood Count 3.07 Hemoglobin 8.2 Hematocrit 25.2 Mean Corpuscular Volume 82.0 Mean Corpuscular Hemoglobin 26.9 Mean Corpuscular Hemoglobin Concent 32.8 Red Cell Distribution Width 17.8 Platelet Count 229 Mean Platelet Volume 7.1 Neutrophils (%) (Auto) 56.4 Lymphocytes (%) (Auto) 33.4 Monocytes (%) (Auto) 9.3 Eosinophils (%) (Auto) 0.7 Basophils (%) (Auto) 0.2 Neutrophils # (Auto) 3.5 Lymphocytes # (Auto) 2.1 Monocytes # (Auto) 0.6 Eosinophils # (Auto) 0.0 Basophils # (Auto) 0.0 CBC Comment DIFF FINAL Differential Comment Lactic Acid Level 2.2 Date/Time Source Procedure Growth Status 07/13/17 12:17 Blood Peripheral Aerobic Blood Culture Pending Received 07/13/17 12:17 Blood Peripheral Anaerobic Blood Culture Pending Received 07/11/17 23:15 Fluid Other Fungal Smear - Final NO FUNGAL ELEMENTS SEEN. Resulted 07/11/17 23:15 Fluid Other Fungal Culture Pending Resulted 07/12/17 02:30 Abscess Face Fungal Smear Pending Ordered 07/12/17 02:30 Abscess Face Fungal Culture Pending Ordered (Lasohn Freeman) Result Diagram: 07/13/17 1200 07/12/17 1009 Imaging Last Impressions Chest X-Ray 07/13/17 0000 Signed Impressions: Service Date/Time: Thursday, July 13, 2017 03:20 - CONCLUSION: Cardiac silhouette enlargement, bilateral pulmonary opacity likely representing mild pulmonary edema, and bilateral small pleural effusions. Rolf Carvajal MD Chest CT 07/13/17 0000 Signed Impressions: Service Date/Time: Thursday, July 13, 2017 11:20 - CONCLUSION: Multifocal airspace consolidation and small left lower lobe pleural effusion. Large abscess involving the right lower lobe. Sravanthi Lane MD (Lashon Freeman) Assessment and Plan Assessment and Plan Sepsis secondary to strept mitis endocarditis and complications Right lung abscess/empyema likely from septic emboli Possible aspiration PNA/HCAP Hx of streptococcal septic shock Hx of septic emboli Hx of right pleural effusion s/p thoracentesis with fluid analysis cytology with both acute and chronic inflammatory cells and no malignancy, cx with no growth x 5 days -Chest x-ray reveals bilateral pulmonary opacity likely representing mild pulmonary edema and bilateral small pleural effusions, images reviewed by me -CT chest reveals multifocal airspace consolidation and small left lower lobe pleural effusion, large abscess involving the right lower lobe, images reviewed by me -blood culture positive for Streptococcus mitis -treated with IV Ceftriaxone Acute respiratory failure status post intubation and subsequent extubation on Left eye uveitis and endogenous endophthalmitis -s/p pars plana vitrectomy, pars plana lensectomy, intravitreal antibiotic injection, retinal detachment repair, left eye. Tricuspid valve endocarditis IVDU Hep C, treatment naive RECOMMENDATIONS: Continue on IV Ceftriaxone. Add IV Vancomycin, pharmacy to dose, target 15-20. CT guided thoracentesis right pleural effusion/abscess, send fluid for analysis Consult CTS for possible VATS or decortication procedure Monitor respiratory status closely 2D echo ordered obtain UDS obtain sputum cx obtain CRP follow up on blood culture results Discussed Condition With Patient, nursing staff (Lashon Freeman) Assessment and Plan The exam, history, and the medical decision-making described in the above note were completed with the assistance of the mid-level provider. I reviewed and agree with the findings presented. I attest that I had a [id number] encounter with the patient on the same day, and personally performed and documented my assessment and findings in the medical record. Reviewed chart from outside hospital. Tricuspid valve endocarditis from Strep Mitis was treated with Ceftriaxone IV. Thoracentesis tapped but no results available. CT imaging reviewed by me from [facility] discussed with Dr. Malik: CT guided thoracentesis. Depending on study results will consider CTS consult. Endopathalmitis Would recommend continue IV Rocephin and start vancomycin IV repeat blood cultures We will be able to provide further recommendations about the start and stop date of antibiotics based on thoracentesis and endocarditis follow-up. Discussed with the patient. (Nai Gabriel MD) Lashon Freeman Jul 13, 2017 16:05 Nai Gabriel MD Jul 13, 2017 17:34
[2017-07-13] MEDS ORDERED: Vancomycin Consult Pharmacy 1 EA OTHER SCH (16:30)
[2017-07-13] MEDS ORDERED: VANCOMYCIN 1,000 MG/NS 250 ML IV ONE ×2 (18:00)
[2017-07-13 23:52] LABS: BILIRUBIN, URINE NEG (NEG); BLOOD, URINE NEG (NEG); GLUCOSE,URINE NEG (NEG); KETONE, URINE NEG (NEG); MUCUS URINE FEW /lpf (OCC); NITRITE,URINE NEG (NEG); SQUAMOUS EPITHELIAL CELL URINE 1 /hpf (0-5); URINE COLOR LIGHT-YELLOW (YELLW/STRAW); URINE LEUKOCYTE ESTERASE NEG (NEG)
[2017-07-14] VITALS (9 sets, daily range): BP systolic 96–132; BP diastolic 63–80; PULSE 98–140; RESP 17–24; TEMP 97.7–101.2; O2SAT 91–96
[2017-07-14] MEDS: guaiFENesin/DEXTROMETHORPHAN 200 MG/20 MG/10 ML CUP PO PRN ×4 (03:41→23:53)
[2017-07-14] MEDS: VANCOMYCIN 1,000 MG/NS 250 ML IV SCH ×6 (03:41→17:22)
[2017-07-14] MEDS: ACETAMINOPHEN/HYDROcodone 325 MG/5 MG TAB PO PRN ×4 (05:37→23:53)
[2017-07-14 06:13] LABS: INTERNATIONAL NORMALIZED RATIO 1.2 RATIO; PROTHROMBIN TIME - PATIENT 11.9 SEC (9.8-11.6)
[2017-07-14 06:25] LABS: C-REACTIVE PROTEIN 18.4 MG/DL (0.00-0.30)
[2017-07-14 06:26] LABS: TOTAL PROTEIN 7.7 GM/DL (6.4-8.2)
[2017-07-14] MEDS: SODIUM CHLORIDE 0.9% FLUSH 10 ML FLUSH IV FLUSH SCH ×2 (07:51→19:49)
[2017-07-14] MEDS: METOPROLOL TARTRATE 50 MG TAB PO SCH ×3 (07:51→17:20)
[2017-07-14] MEDS: cefTRIAXone INJ 2,000 MG in SODIUM CHLORIDE 0.9% INJ 100 ML IV SCH (07:51)
[2017-07-14] MEDS: ACETAMINOPHEN 325 MG TAB PO PRN ×2 (07:51→19:48)
[2017-07-14] MEDS: MOXIFLOXACIN 0.5% OPHT SOLN 3 ML BTL LEFT EYE SCH ×4 (07:53→19:51)
[2017-07-14] MEDS: TOBRAMYCIN/DEXAMETHASONE OPTH OINT 3.5 GM TUBE LEFT EYE SCH ×4 (07:55→19:52)
[2017-07-14] MEDS: prednisoLONE ACETATE 1% OPHT SUSP 5 ML BTL LEFT EYE SCH ×4 (07:55→23:54)
[2017-07-14] MEDS: ATROPINE SULFATE 1% OPHT SOLN 5 ML BTL LEFT EYE SCH ×2 (07:55→19:51)
[2017-07-14] MEDS: ARTIFICIAL TEARS OPTH SOLN 15 ML BTL EACH EYE SCH ×4 (07:56→19:50)
[2017-07-14] MEDS ORDERED: fentaNYL CITRATE 250 MCG/5 ML AMP ONE (09:51)
[2017-07-14] MEDS ORDERED: MIDAZOLAM HCL 5 MG/5 ML VIAL ONE (09:51)
[2017-07-14] MEDS ORDERED: BUPIVACAINE HCL PF 0.75% 30 ML VIAL ONE ×2 (10:26→12:06)
--- NOTE | 2017-07-14 11:05 | RADRPT ---
EXAM DATE/TIME: 07/14/2017 10:58 [place] COMPARISON: No previous studies available for comparison. INDICATIONS : Post right side chest tube placement. MEDICAL HISTORY : None. SURGICAL HISTORY : None. ENCOUNTER: Subsequent ACUITY: 2 days PAIN SCORE: 0/10 LOCATION: Bilateral chest FINDINGS: Small bore chest tube in good position on the right with significant improvement in the empyema right lung. Patchy airspace disease in both lungs. Compensated cardiomegaly CONCLUSION: Chest tube on the right in good position Kaiser Wong MD FACR on July 14, 2017 at 11:02 Board Certified Radiologist. This report was verified electronically.
[2017-07-14 12:08] LABS: TOTAL PROTEIN,PLEURAL FLUID 1.6 GM/DL
--- NOTE | 2017-07-14 12:10 | RADRPT ---
EXAM DATE/TIME: 07/14/2017 10:20 INDICATIONS : Right chest abscess SEDATION TIME: 30 minutes MEDICATION(S): 1.) 5 mg midazolam (Versed) IV 2.) 250 mcg fentanyl (Sublimaze) IV DEVICE(S): 1.) 8 Fr Skater FLUID: Total volume of600 cc of louise fluid was removed. Fluid was sent for laboratory ordered studies. MEDICAL HISTORY : Hepatitis C. Cardiovascular disease. SURGICAL HISTORY : None. ENCOUNTER: Initial ACUITY: 1 day PAIN SCORE: 0/10 LOCATION: Right chest PROCEDURE: 1.) Conscious sedation with continuous EKG and oximetry monitoring. 2.) EKG and oximetry remained stable throughout the procedure. PROCEDURE : 1. CT guided chest tube placement. 2. Conscious sedation with continuous EKG and oximetry monitoring. The risks, benefits and alternatives to the procedure were explained and verbal and written consent w as obtained. The site was prepped in sterile fashion. Full sterile technique was used, including ca p, mask, sterile gloves and gown and a large sterile sheet. Hand hygiene and 2% chlorhexidine and/or betadine/alcohol prep was utilized per protocol for cutaneous antisepsis. The skin and subcutaneous tissues were infiltrated with local anesthetic solution. Using automated exposure control and adjus tment of the mA and/or kV according to patient size, radiation dose was kept as low as reasonably ach ievable to obtain optimal diagnostic quality images. DICOM format image data is available electronic ally for review and comparison. Under CT guidance 10-English chest tube was placed in the empyema. 600 cc of pus were removed. The l ongest trapped and will not reexpand to fill the void.. Catheter was placed to Pleur-evac suction 47 years. Conscious sedation was performed with the prescribed dosages and duration as above. The patient olga ated the procedure well and there were no complications. EKG and oximetry remained stable throughout the procedure. The patient was sent to post anesthesia recovery in stable condition. CONCLUSION: Uncomplicated 10-English chest tube placement on the right. Fluid was sent for Gram stain and culture. Kaiser Wong MD FACR on July 14, 2017 at 12:06 Board Certified Radiologist. This report was verified electronically.
--- NOTE | 2017-07-14 12:12 | MB ---
cc: Onel Malik MD DATE: 07/13/2017 REQUESTING PHYSICIAN: Dr. Nai Gabriel. REASON FOR CONSULTATION: Evaluate for pleural effusion and lung collapse . HISTORY OF PRESENT ILLNESS: Ms. Luque is a 32-year-old female with history of hepatitis C and endocarditis. Initially, she was admitted at [facility]. She was found to have septic emboli, sepsis, tricuspid valve endocarditis and septic shock. She was on a ventilator briefly. She was treated with antibiotics. She also had pleural effusion right thoracentesis done. She was found to endophthalmitis, that is why she is sent over here for management by an strategic solutions consultant. She has fever, has cough, with brownish sputum production. No hemoptysis, mild chest discomfort. No nausea or vomiting. She had a workup done. Her CT scan of the chest shows she has multifocal airspace consolidation and small left pleural effusion, as well as large abscess involving the right lower lobe. Her CBC showed WBC 16.2, hemoglobin 8.2, hematocrit 25.2, MCV 82, platelet count 229. Sodium 131, potassium 4.6, chloride 107, CO2 23, BUN 11, creatinine 0.67. PAST MEDICAL HISTORY: Significant history of recent endocarditis, history of hepatitis C. She has a retinal detachment in the left eye and no lesion in the left eye. MEDICATIONS: She is taking Robitussin-DM 10 mL, tobramycin eyedrops, moxifloxacin eye drops, prednisone eyedrops, atropine eyedrops, hydrocodone 1 tablet every 6 hours p.r.n., Rocephin 2 grams a day, Xanax as needed. ALLERGIES: NO KNOWN DRUG ALLERGIES. SOCIAL HISTORY: She is single and lives with her boyfriend, has a history of smoking and IV drug use. She works as a dancer. FAMILY HISTORY: She has no children. REVIEW OF SYSTEMS: She denies any weight loss. No headache or dizziness, has fever. No DVT or pulmonary embolism. No seizure, stroke or epilepsy. PHYSICAL EXAMINATION: GENERAL: MBMN WF, not in any acute distress. VITAL SIGNS: Her blood pressure 122/58, heart rate 127, temperature 103, respiratory rate 22. 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 Pupils are dilated because of the eye drops. NECK: Supple. JVD not raised. CHEST: Equal air entry bilaterally. She has decreased breath sounds at the right bases. HEART: S1, S2 normal. ABDOMEN: Benign. EXTREMITIES: No edema. IMPRESSION: 1. Right pleural effusion, possible empyema or abscess. 2. Left lung infiltrate and effusion. 3. Endocarditis. 4. Endophthalmitis. 5. IV drug use. 6. Nicotine use. PLAN: We will continue antibiotic per ID recommendations. She will need ultrasound-guided chest tube placement. If we are not able to drain the fluid, then she will need thoracic surgery consultation and VATS and thoracoscopy. Thank you, Dr. Rigo Goyal for this consult. MD KATIA Abraham/HUGH , 05:18 PM , 05:49 PM [email or web address]
[2017-07-14 12:17] LABS: PLEURAL FLUID POLYS (SEGS) ND %; PLEURAL FLUID RBC 0 /MM3 (0-0); PLEURAL FLUID WBC 112959 /MM3 (0-10)
--- NOTE | 2017-07-14 12:36 | HHI.PR ---
Subjective Remarks Follow-up for severe endogenous endophthalmitis, left retinal detachment, tricuspid endocarditis, IV drug use. Ms. Luque continues to have persistent fever. No chest pain, SOB. She is going for chest tube placement this morning. Objective Vitals Vital Signs Date Time Temp Pulse Resp B/P (MAP) Pulse Ox O2 Delivery O2 Flow Rate FiO2 07/14/17 11:50 115 19 103/65 (78) 93 07/14/17 11:20 115 18 102/70 (81) 93 07/14/17 11:05 97.7 111 18 116/63 (80) 91 07/14/17 09:01 100.2 07/14/17 08:00 101.2 140 24 114/65 (81) 96 07/14/17 04:00 99.2 126 18 123/63 (83) 94 07/14/17 00:00 100.1 116 18 132/73 (92) 92 07/13/17 20:00 98.9 101 18 109/69 (82) 92 07/13/17 16:00 103.0 127 22 122/58 (79) 92 07/13/17 13:09 93 21 I/O 07/13/17 07/13/17 07/13/17 07/14/17 07/14/17 07/14/17 07:00 15:00 23:00 07:00 15:00 23:00 Intake Total 540 ml 100 ml 250 ml 0 ml 350 ml Balance 540 ml 100 ml 250 ml 0 ml 350 ml Intake Oral 240 ml 0 ml IV Total 300 ml 100 ml 250 ml 350 ml # Voids 3 2 Result Diagram: 07/13/17 1200 07/12/17 1009 Imaging Last Impressions Chest X-Ray 07/14/17 0000 Signed Impressions: Service Date/Time: Friday, July 14, 2017 10:58 - CONCLUSION: Chest tube on the right in good position Kaiser Wong MD FACR Chest CT 07/13/17 0000 Signed Impressions: Service Date/Time: Thursday, July 13, 2017 11:20 - CONCLUSION: Multifocal airspace consolidation and small left lower lobe pleural effusion. Large abscess involving the right lower lobe. Sravanthi Lane MD Objective Remarks GENERAL: Alert, oriented 3, NAD. SKIN: Warm and dry. HEAD: Normocephalic. EYES: No scleral icterus. Left eye covered with dressing. NECK: Supple, trachea midline. No JVD or lymphadenopathy. CARDIOVASCULAR: Tachycardic without murmurs, gallops, or rubs. RESPIRATORY: Moderate air entry, right lung diminished breath sound. No accessory muscle use. GASTROINTESTINAL: Abdomen soft, non-tender, nondistended. MUSCULOSKELETAL: No cyanosis, or edema. BACK: Nontender without obvious deformity. No CVA tenderness. Procedures 07/12/2017 Pars plana vitrectomy, pars plana lensectomy, intravitreal antibiotic injection, retinal detachment repair, left eye. A/P Assessment and Plan Ms. Luque is 31 y/o female with a history of untreated hepatitis C, IVDA, and tobacco abuse who was transferred from [facility] to [facility] for ophthalmology surgical evaluation by Dr. Kowalski. Tricuspid valve endocarditis - Dr. Mcginnis discussed case with hospitalist from [facility] the transferring facility - Continue Ceftriaxone 2 gram IV q24h until 07/19 per ID at [facility] - Acetaminophen, [place] as needed for pain. Increase frequency of [place]. Sepsis (Fever above 101, resp rate over 20 on 07/12/2017, tricuspid endocarditis) . - Blood cx negative so far. - CT Chest shows right sided abscess. Patient underwent chest tube placement today by IR. - Infection disease consult. - If ID clears patient to go back to [facility], we can discharge patient. Waiting for ID to give input. Uveitis and endogenous endophthalmitis Left Retinal detachment - patient was seen by fur cleaner at [facility] - Patient was evaluated by fur cleaner Dr. Kowalski. Patient underwent ophthalmological surgical intervention on 07/12/2017 Full code. Ambulation. Alecia Zarate DO Jul 14, 2017 12:36 pm
[2017-07-14] MEDS: ALPRAZolam 0.25 MG TAB PO PRN ×2 (12:37→19:57)
--- NOTE | 2017-07-14 15:02 | HHI.IDPN ---
Subjective Subjective Remarks is a 31-year-old female with past medical history significant for hepatitis C-treatment luis and IV drug use who was transferred from [facility] to [facility] for ophthalmology surgical evaluation for severe left eye endogenous endophthalmitis. Patient was admitted to [facility] on 06/16/17 for septic emboli, sepsis, endocarditis and impending respiratory failure. She has been treated for tricuspid valve endocarditis and streptococcal septic shock. Reportedly, patient was initially seen at [facility] for pneumonia and was discharged from the ED with a Zithromax prescription. After failing to improve, she went went to [facility] and with in a day of her hospitalization developed respiratory failure and required intubation. Blood culture positive for Streptococcus mitis. She underwent a US guided thoracentesis right side with 1000ml of turbid serosanguineous fluid removed. She was treated with IV Ceftriaxone and per her discharge instructions, she was to continue with IV ceftriaxone through . Approximately one week ago, she began to have visual deficits in the left eye with swelling. She was seen daily by bicycle technician at the other facility and 3 days ago it was determined that she needed surgical intervention with subsequent transfer to our facility for ophthalmology surgical evaluation by Dr. Kowalski. 07/12/17, patient underwent Pars plana vitrectomy, pars plana lensectomy, intravitreal antibiotic injection, retinal detachment repair, left eye performed by Dr. Kowalski. During hospitalization here at [facility], she's had persistent cough and fevers. Infectious disease consultation was requested for evaluation and management of persistent fevers and tricuspid valve endocarditis. Patient is currently awake and alert lying in bed. She is a poor historian and much of the medical history is obtained from review of previous medical records and our EMR. She complains of fever, chills and sweats. She complains of persistent cough with brownish sputum production. She has difficulty with breathing. She denies any chest pain. Currently, her fever is 103. She is tachycardic with a heart rate of 114. White count is 6.2. Blood cultures are pending. Lactic acid is 2.2. Overnight events reviewed Fevers 101-1-3 F tachycardic BP borderline. Appears sick looking today. Uo ok. No rash No diarrhea Left eye no vision. Rt eye vision intact no floaters. Antibiotics Ceftriaxone IV Vanco IV Lines Line sites with no e.o infection Allergies: Coded Allergies: No Known Allergies (Unverified , 07/11/17) Objective . Vital Signs Date Time Temp Pulse Resp B/P (MAP) Pulse Ox O2 Delivery O2 Flow Rate FiO2 07/14/17 11:50 115 19 103/65 (78) 93 07/14/17 11:20 115 18 102/70 (81) 93 07/14/17 11:05 97.7 111 18 116/63 (80) 91 07/14/17 09:01 100.2 07/14/17 08:00 101.2 140 24 114/65 (81) 96 07/14/17 04:00 99.2 126 18 123/63 (83) 94 07/14/17 00:00 100.1 116 18 132/73 (92) 92 07/13/17 20:00 98.9 101 18 109/69 (82) 92 07/13/17 16:00 103.0 127 22 122/58 (79) 92 07/14/17 07/14/17 07/15/17 15:00 23:00 07:00 Intake Total 350 ml Balance 350 ml IV Total 350 ml . Laboratory Tests Test 07/13/17 12:00 White Blood Count 6.2 TH/MM3 Red Blood Count 3.07 MIL/MM3 Hemoglobin 8.2 GM/DL Hematocrit 25.2 % Mean Corpuscular Volume 82.0 FL Mean Corpuscular Hemoglobin 26.9 PG Mean Corpuscular Hemoglobin Concent 32.8 % Red Cell Distribution Width 17.8 % Platelet Count 229 TH/MM3 Mean Platelet Volume 7.1 FL Neutrophils (%) (Auto) 56.4 % Lymphocytes (%) (Auto) 33.4 % Monocytes (%) (Auto) 9.3 % Eosinophils (%) (Auto) 0.7 % Basophils (%) (Auto) 0.2 % Neutrophils # (Auto) 3.5 TH/MM3 Lymphocytes # (Auto) 2.1 TH/MM3 Monocytes # (Auto) 0.6 TH/MM3 Eosinophils # (Auto) 0.0 TH/MM3 Basophils # (Auto) 0.0 TH/MM3 CBC Comment DIFF FINAL Differential Comment Laboratory Tests Test 07/13/17 14:13 07/14/17 05:32 Lactic Acid Level 2.2 mmol/L 1.8 mmol/L Lactate Dehydrogenase 189 U/L C-Reactive Protein 18.40 MG/DL Total Protein 7.7 GM/DL Microbiology Date/Time Source Procedure Growth Status 07/13/17 12:17 Blood Peripheral Aerobic Blood Culture - Preliminary NO GROWTH IN 1 DAY Resulted 07/13/17 12:17 Blood Peripheral Anaerobic Blood Culture - Preliminary NO GROWTH IN 1 DAY Resulted 07/13/17 12:00 Blood Peripheral Aerobic Blood Culture - Preliminary NO GROWTH IN 1 DAY Resulted 07/13/17 12:00 Blood Peripheral Anaerobic Blood Culture - Preliminary NO GROWTH IN 1 DAY Resulted 07/14/17 10:30 Fluid Pleural Fluid Gram Stain Pending Received 07/14/17 10:30 Fluid Pleural Fluid Body Fluid Culture Pending Received 07/11/17 23:15 Fluid Other Fungal Smear - Final NO FUNGAL ELEMENTS SEEN. Resulted 07/11/17 23:15 Fluid Other Fungal Culture Pending Resulted 07/11/17 23:15 Fluid Other Acid Fast Stain - Final NO ACID FAST BACILLI SEEN Resulted 07/11/17 23:15 Fluid Other Mycobacterial Culture Pending Resulted 07/11/17 23:15 Fluid Other Gram Stain - Final Resulted 07/11/17 23:15 Fluid Other Body Fluid Culture - Preliminary NO GROWTH IN 48 HOURS. Resulted 07/12/17 02:30 Abscess Face Fungal Smear Pending Ordered 07/12/17 02:30 Abscess Face Fungal Culture Pending Ordered 07/12/17 02:30 Abscess Face Acid Fast Stain Pending Ordered 07/12/17 02:30 Abscess Face Mycobacterial Culture Pending Ordered 07/12/17 02:30 Abscess Face Gram Stain Pending Ordered 07/12/17 02:30 Abscess Face Wound Culture Pending Ordered Imaging Last Impressions Chest X-Ray 07/14/17 0000 Signed Impressions: Service Date/Time: Friday, July 14, 2017 10:58 - CONCLUSION: Chest tube on the right in good position Kaiser Wong MD FACR Chest Tube Insertion 07/14/17 0000 Signed Impressions: Service Date/Time: Friday, July 14, 2017 10:20 - CONCLUSION: Uncomplicated 10-Irish chest tube placement on the right. Fluid was sent for Gram stain and culture. Kaiser Wong MD FACR Chest CT 07/13/17 0000 Signed Impressions: Service Date/Time: Thursday, July 13, 2017 11:20 - CONCLUSION: Multifocal airspace consolidation and small left lower lobe pleural effusion. Large abscess involving the right lower lobe. Sravanthi Lane MD Physical Exam GENERAL: This is a well-nourished, well-developed thin young female patient, in no apparent distress. Awake and alert. SKIN: No rashes, ecchymoses or lesions. Very warm to the touch. HEAD: Atraumatic. Normocephalic. No temporal or scalp tenderness. EYES: Pupil equal round and reactive right eye. Extraocular motions intact right eye. No scleral icterus, injection or drainage right eye. Left eye not assessed due to recent surgery. ENT: Nose without bleeding, purulent drainage. Throat without erythema, tonsillar hypertrophy or exudate. Uvula midline. Airway patent. NECK: Trachea midline. No lymphadenopathy. Supple, nontender, no meningeal signs. CARDIOVASCULAR: Tachycardic with 4-5/6 systolic murmur. RESPIRATORY: Diminished breath sounds on the right with creps noted in right lung base. No accessory muscle use. GASTROINTESTINAL: Abdomen soft, non-tender, nondistended. No hepato-splenomegaly , or palpable masses. No guarding. MUSCULOSKELETAL: Extremities without clubbing, cyanosis, or edema. No joint tenderness, effusion, or edema noted. No calf tenderness. NEUROLOGICAL: Awake and alert. Cranial nerves II through XII grossly intact. Motor and sensory grossly within normal limits. Normal speech. PSYCHIATRIC: Appropriate mood and affect. Normal judgment and insight. Assessment & Plan Remarks Sepsis secondary to strept mitis endocarditis and complications Right lung abscess/empyema likely from septic emboli Possible aspiration PNA/HCAP Hx of streptococcal septic shock Hx of septic emboli Hx of right pleural effusion s/p thoracentesis with fluid analysis cytology with both acute and chronic inflammatory cells and no malignancy, cx with no growth x 5 days -Chest x-ray reveals bilateral pulmonary opacity likely representing mild pulmonary edema and bilateral small pleural effusions, images reviewed by oh -CT chest reveals multifocal airspace consolidation and small left lower lobe pleural effusion, large abscess involving the right lower lobe, images reviewed by me -blood culture positive for Streptococcus mitis -treated with IV Ceftriaxone Acute respiratory failure status post intubation and subsequent extubation on Left eye uveitis and endogenous endophthalmitis -s/p pars plana vitrectomy, pars plana lensectomy, intravitreal antibiotic injection, retinal detachment repair, left eye. Tricuspid valve endocarditis IVDU Hep C, treatment naive RECOMMENDATIONS: Continue on IV Ceftriaxone. Continue IV Vancomycin, pharmacy to dose, target 15-20. CT guided thoracentesis right pleural effusion/abscess, Fluid studies reviewed concerning for empyema based on CT findings and fluid studies so far. Consult CTS for possible VATS or decortication procedure Monitor respiratory status closely. If any evidence of worsening sepsis please add Cefepime IV for PSAE coverage for HCAP. Follow 2D ECHO follow cultures Follow clinically. Inquire if CTS is available at other institution. At present time patient appears septic and sick and needs source control. Will have CTS provide further input about need for VATS or decortication. deepa Rodney hospitalist. Nai Gabriel MD Jul 14, 2017 15:02
--- NOTE | 2017-07-14 16:17 | HHI.IDPN ---
Subjective Subjective Remarks is a 31-year-old female with past medical history significant for hepatitis C-treatment luis and IV drug use who was transferred from [facility] to [facility] for ophthalmology surgical evaluation for severe left eye endogenous endophthalmitis. Patient was admitted to [facility] on 06/16/17 for septic emboli, sepsis, endocarditis and impending respiratory failure. She has been treated for tricuspid valve endocarditis and streptococcal septic shock. Reportedly, patient was initially seen at [facility] for pneumonia and was discharged from the ED with a Zithromax prescription. After failing to improve, she went went to [facility] and with in a day of her hospitalization developed respiratory failure and required intubation. Blood culture positive for Streptococcus mitis. She underwent a US guided thoracentesis right side with 1000ml of turbid serosanguineous fluid removed. She was treated with IV Ceftriaxone and per her discharge instructions, she was to continue with IV ceftriaxone through . Approximately one week ago, she began to have visual deficits in the left eye with swelling. She was seen daily by security installer at the other facility and 3 days ago it was determined that she needed surgical intervention with subsequent transfer to our facility for ophthalmology surgical evaluation by Dr. Kowalski. 07/12/17, patient underwent Pars plana vitrectomy, pars plana lensectomy, intravitreal antibiotic injection, retinal detachment repair, left eye performed by Dr. Kowalski. During hospitalization here at [place], she's had persistent cough and fevers. Infectious disease consultation was requested for evaluation and management of persistent fevers and tricuspid valve endocarditis. Patient is currently awake and alert lying in bed. She is a poor historian and much of the medical history is obtained from review of previous medical records and our EMR. She complains of fever, chills and sweats. She complains of persistent cough with brownish sputum production. She has difficulty with breathing. She denies any chest pain. Currently, her fever is 103. She is tachycardic with a heart rate of 114. White count is 6.2. Blood cultures are pending. Lactic acid is 2.2. Overnight events reviewed Fevers 101-1-3 F tachycardic BP borderline. Appears sick looking today. Uo ok. No rash No diarrhea Left eye no vision. Rt eye vision intact no floaters. Antibiotics Ceftriaxone IV Vanco IV Lines Line sites with no e.o infection Allergies: Coded Allergies: No Known Allergies (Unverified , 07/11/17) Objective . Vital Signs Date Time Temp Pulse Resp B/P (MAP) Pulse Ox O2 Delivery O2 Flow Rate FiO2 07/14/17 11:50 115 19 103/65 (78) 93 07/14/17 11:20 115 18 102/70 (81) 93 07/14/17 11:05 97.7 111 18 116/63 (80) 91 07/14/17 09:01 100.2 07/14/17 08:00 101.2 140 24 114/65 (81) 96 07/14/17 04:00 99.2 126 18 123/63 (83) 94 07/14/17 00:00 100.1 116 18 132/73 (92) 92 07/13/17 20:00 98.9 101 18 109/69 (82) 92 07/14/17 07/14/17 07/15/17 15:00 23:00 07:00 Intake Total 350 ml Balance 350 ml IV Total 350 ml . Laboratory Tests Test 07/13/17 12:00 White Blood Count 6.2 TH/MM3 Red Blood Count 3.07 MIL/MM3 Hemoglobin 8.2 GM/DL Hematocrit 25.2 % Mean Corpuscular Volume 82.0 FL Mean Corpuscular Hemoglobin 26.9 PG Mean Corpuscular Hemoglobin Concent 32.8 % Red Cell Distribution Width 17.8 % Platelet Count 229 TH/MM3 Mean Platelet Volume 7.1 FL Neutrophils (%) (Auto) 56.4 % Lymphocytes (%) (Auto) 33.4 % Monocytes (%) (Auto) 9.3 % Eosinophils (%) (Auto) 0.7 % Basophils (%) (Auto) 0.2 % Neutrophils # (Auto) 3.5 TH/MM3 Lymphocytes # (Auto) 2.1 TH/MM3 Monocytes # (Auto) 0.6 TH/MM3 Eosinophils # (Auto) 0.0 TH/MM3 Basophils # (Auto) 0.0 TH/MM3 CBC Comment DIFF FINAL Differential Comment Laboratory Tests Test 07/13/17 14:13 07/14/17 05:32 Lactic Acid Level 2.2 mmol/L 1.8 mmol/L Lactate Dehydrogenase 189 U/L C-Reactive Protein 18.40 MG/DL Total Protein 7.7 GM/DL Microbiology Date/Time Source Procedure Growth Status 07/13/17 12:17 Blood Peripheral Aerobic Blood Culture - Preliminary NO GROWTH IN 1 DAY Resulted 07/13/17 12:17 Blood Peripheral Anaerobic Blood Culture - Preliminary NO GROWTH IN 1 DAY Resulted 07/13/17 12:00 Blood Peripheral Aerobic Blood Culture - Preliminary NO GROWTH IN 1 DAY Resulted 07/13/17 12:00 Blood Peripheral Anaerobic Blood Culture - Preliminary NO GROWTH IN 1 DAY Resulted 07/14/17 10:30 Fluid Pleural Fluid Gram Stain - Final Resulted 07/14/17 10:30 Fluid Pleural Fluid Body Fluid Culture Pending Resulted 07/11/17 23:15 Fluid Other Fungal Smear - Final NO FUNGAL ELEMENTS SEEN. Resulted 07/11/17 23:15 Fluid Other Fungal Culture Pending Resulted 07/11/17 23:15 Fluid Other Acid Fast Stain - Final NO ACID FAST BACILLI SEEN Resulted 07/11/17 23:15 Fluid Other Mycobacterial Culture Pending Resulted 07/11/17 23:15 Fluid Other Gram Stain - Final Resulted 07/11/17 23:15 Fluid Other Body Fluid Culture - Preliminary NO GROWTH IN 48 HOURS. Resulted 07/12/17 02:30 Abscess Face Fungal Smear Pending Ordered 07/12/17 02:30 Abscess Face Fungal Culture Pending Ordered 07/12/17 02:30 Abscess Face Acid Fast Stain Pending Ordered 07/12/17 02:30 Abscess Face Mycobacterial Culture Pending Ordered 07/12/17 02:30 Abscess Face Gram Stain Pending Ordered 07/12/17 02:30 Abscess Face Wound Culture Pending Ordered Imaging Last Impressions Chest X-Ray 07/14/17 0000 Signed Impressions: Service Date/Time: Friday, July 14, 2017 10:58 - CONCLUSION: Chest tube on the right in good position Kaiser Wong MD FACR Chest Tube Insertion 07/14/17 0000 Signed Impressions: Service Date/Time: Friday, July 14, 2017 10:20 - CONCLUSION: Uncomplicated 10-Faroese chest tube placement on the right. Fluid was sent for Gram stain and culture. Kaiser Wong MD FACR Chest CT 07/13/17 0000 Signed Impressions: Service Date/Time: Thursday, July 13, 2017 11:20 - CONCLUSION: Multifocal airspace consolidation and small left lower lobe pleural effusion. Large abscess involving the right lower lobe. Sravanthi Lane MD Physical Exam GENERAL: This is a well-nourished, well-developed thin young female patient, in no apparent distress. Awake and alert. SKIN: No rashes, ecchymoses or lesions. Very warm to the touch. HEAD: Atraumatic. Normocephalic. No temporal or scalp tenderness. EYES: Pupil equal round and reactive right eye. Extraocular motions intact right eye. No scleral icterus, injection or drainage right eye. Left eye not assessed due to recent surgery. ENT: Nose without bleeding, purulent drainage. Throat without erythema, tonsillar hypertrophy or exudate. Uvula midline. Airway patent. NECK: Trachea midline. No lymphadenopathy. Supple, nontender, no meningeal signs. CARDIOVASCULAR: Tachycardic with 4-5/6 systolic murmur. RESPIRATORY: Diminished breath sounds on the right with creps noted in right lung base. No accessory muscle use. GASTROINTESTINAL: Abdomen soft, non-tender, nondistended. No hepato-splenomegaly , or palpable masses. No guarding. MUSCULOSKELETAL: Extremities without clubbing, cyanosis, or edema. No joint tenderness, effusion, or edema noted. No calf tenderness. NEUROLOGICAL: Awake and alert. Cranial nerves II through XII grossly intact. Motor and sensory grossly within normal limits. Normal speech. PSYCHIATRIC: Appropriate mood and affect. Normal judgment and insight. Assessment & Plan Remarks Sepsis secondary to strept mitis endocarditis and complications Right lung abscess/empyema likely from septic emboli Possible aspiration PNA/HCAP Hx of streptococcal septic shock Hx of septic emboli Hx of right pleural effusion s/p thoracentesis with fluid analysis cytology with both acute and chronic inflammatory cells and no malignancy, cx with no growth x 5 days -Chest x-ray reveals bilateral pulmonary opacity likely representing mild pulmonary edema and bilateral small pleural effusions, images reviewed by ak -CT chest reveals multifocal airspace consolidation and small left lower lobe pleural effusion, large abscess involving the right lower lobe, images reviewed by ak -blood culture positive for Streptococcus mitis -treated with IV Ceftriaxone Acute respiratory failure status post intubation and subsequent extubation on Left eye uveitis and endogenous endophthalmitis -s/p pars plana vitrectomy, pars plana lensectomy, intravitreal antibiotic injection, retinal detachment repair, left eye. Tricuspid valve endocarditis IVDU Hep C, treatment naive RECOMMENDATIONS: Continue on IV Ceftriaxone. Continue IV Vancomycin, pharmacy to dose, target 15-20. CT guided thoracentesis right pleural effusion/abscess, Fluid studies reviewed concerning for empyema based on CT findings and fluid studies so far. Consult CTS for possible VATS or decortication procedure Monitor respiratory status closely. If any evidence of worsening sepsis please add Cefepime IV for PSAE coverage for HCAP. Follow 2D ECHO follow cultures Follow clinically. Inquire if CTS is available at other institution. At present time patient appears septic and sick and needs source control. Will have CTS provide further input about need for VATS or decortication. deepa Rodney hospitalist. Nai Gabriel MD Jul 14, 2017 16:17
[2017-07-14] MEDS ORDERED: PHARMACY ORDERED LAB ONE (17:45)
--- NOTE | 2017-07-14 17:55 | HHI.PR ---
Subjective Remarks 31 YOWF with Endocarditis, Endophthalmitis, Left had Right chest tube placed Pl fluid consistant with Empyema has Fever Objective Vital Signs Vital Signs Date Time Temp Pulse Resp B/P (MAP) Pulse Ox O2 Delivery O2 Flow Rate FiO2 07/14/17 11:50 115 19 103/65 (78) 93 07/14/17 11:20 115 18 102/70 (81) 93 07/14/17 11:05 97.7 111 18 116/63 (80) 91 07/14/17 09:01 100.2 07/14/17 08:00 101.2 140 24 114/65 (81) 96 07/14/17 04:00 99.2 126 18 123/63 (83) 94 07/14/17 00:00 100.1 116 18 132/73 (92) 92 07/13/17 20:00 98.9 101 18 109/69 (82) 92 I/O 07/13/17 07/13/17 07/13/17 07/14/17 07/14/17 07/14/17 06:59 14:59 22:59 06:59 14:59 22:59 Intake Total 540 ml 100 ml 250 ml 0 ml 350 ml Balance 540 ml 100 ml 250 ml 0 ml 350 ml Intake Oral 240 ml 0 ml IV Total 300 ml 100 ml 250 ml 350 ml # Voids 3 2 Result Diagram: 07/13/17 1200 07/12/17 1009 Objective Remarks GENERAL: MBMN WF, mild discomfort SKIN: Warm and dry. HEAD: Normocephalic. EYES: No scleral icterus. No injection or drainage. no vision in left eye due to endophthalmitis NECK: Supple, trachea midline. No JVD or lymphadenopathy. CARDIOVASCULAR: Regular rate and rhythm without murmurs, gallops, or rubs. RESPIRATORY: Breath sounds equal bilaterally. No accessory muscle use. Right chest tube draining GASTROINTESTINAL: Abdomen soft, non-tender, nondistended. MUSCULOSKELETAL: No cyanosis, or edema. BACK: Nontender without obvious deformity. No CVA tenderness. A/P Assessment and Plan IMPRESSION: 1. Right pleural effusion, possible empyema or abscess. 2. Left lung infiltrate and effusion. 3. Endocarditis. 4. Endophthalmitis. 5. IV drug use. 6. Nicotine use PLAN: Chest tube to suction Abx per ID DW Dr.Tanuja Gabriel CTS consulted Onel Malik MD Jul 14, 2017 17:55
[2017-07-15] VITALS: BP 106/70; PULSE 97; RESP 18; TEMP 97.8; O2SAT 96
[2017-07-15] MEDS: VANCOMYCIN 1,000 MG/NS 250 ML IV SCH ×6 (02:17→17:45)
[2017-07-15 04:00] VITALS: BP 102/67; PULSE 99; RESP 17; TEMP 97.7; O2SAT 97
[2017-07-15] MEDS: oxyCODONE/ACETAMINOPHEN 5 MG/325 MG TAB PO PRN ×3 (05:05→20:26)
[2017-07-15 06:14] LABS: CREATININE 0.58 MG/DL (0.50-1.00)
[2017-07-15 08:00] VITALS: BP 108/65; PULSE 112; RESP 17; TEMP 98.3; O2SAT 92
[2017-07-15] MEDS: SODIUM CHLORIDE 0.9% FLUSH 10 ML FLUSH IV FLUSH SCH ×2 (08:35→20:23)
[2017-07-15] MEDS: cefTRIAXone INJ 2,000 MG in SODIUM CHLORIDE 0.9% INJ 100 ML IV SCH (08:35)
[2017-07-15] MEDS: ALPRAZolam 0.25 MG TAB PO PRN ×2 (08:35→20:26)
[2017-07-15] MEDS: METOPROLOL TARTRATE 50 MG TAB PO SCH ×3 (08:35→18:00)
[2017-07-15] MEDS: ARTIFICIAL TEARS OPTH SOLN 15 ML BTL EACH EYE SCH ×4 (08:39→20:22)
[2017-07-15] MEDS: ATROPINE SULFATE 1% OPHT SOLN 5 ML BTL LEFT EYE SCH ×2 (08:39→20:21)
[2017-07-15] MEDS: prednisoLONE ACETATE 1% OPHT SUSP 5 ML BTL LEFT EYE SCH ×4 (08:40→20:21)
[2017-07-15] MEDS: MOXIFLOXACIN 0.5% OPHT SOLN 3 ML BTL LEFT EYE SCH ×4 (08:40→20:20)
--- NOTE | 2017-07-15 10:52 | HHI.PR ---
Subjective Remarks Follow-up for severe endogenous endophthalmitis, left retinal detachment, tricuspid endocarditis, IV drug use. Patient is doing well. However, she complains of significant pain from the chest tube insertion site. No fever, chills overnight. Objective Vitals Vital Signs Date Time Temp Pulse Resp B/P (MAP) Pulse Ox O2 Delivery O2 Flow Rate FiO2 07/15/17 08:00 98.3 112 17 108/65 (79) 92 07/15/17 06:17 18 07/15/17 04:00 97.7 99 17 102/67 (79) 97 07/15/17 02:21 18 07/15/17 00:00 97.8 97 18 106/70 (82) 96 07/14/17 21:43 18 07/14/17 20:00 99.5 98 17 105/80 (88) 94 07/14/17 16:00 98.5 99 18 96/66 (76) 94 07/14/17 11:50 115 19 103/65 (78) 93 07/14/17 11:20 115 18 102/70 (81) 93 07/14/17 11:05 97.7 111 18 116/63 (80) 91 I/O 07/14/17 07/14/17 07/14/17 07/15/17 07/15/17 07/15/17 07:00 15:00 23:00 07:00 15:00 23:00 Intake Total 0 ml 350 ml 850 ml 760 ml Output Total 340 ml Balance 0 ml 350 ml 510 ml 760 ml Intake Oral 0 ml 600 ml 760 ml IV Total 350 ml 250 ml Output Chest Tube Drainage Total 340 ml # Voids 2 4 2 Result Diagram: 07/13/17 1200 07/15/17 0444 Imaging Last Impressions Chest X-Ray 07/14/17 0000 Signed Impressions: Service Date/Time: Friday, July 14, 2017 10:58 - CONCLUSION: Chest tube on the right in good position Kaiser Wong MD FACR Chest Tube Insertion 07/14/17 0000 Signed Impressions: Service Date/Time: Friday, July 14, 2017 10:20 - CONCLUSION: Uncomplicated 10-Khmer chest tube placement on the right. Fluid was sent for Gram stain and culture. Kaiser Wong MD FACR Chest CT 07/13/17 0000 Signed Impressions: Service Date/Time: Thursday, July 13, 2017 11:20 - CONCLUSION: Multifocal airspace consolidation and small left lower lobe pleural effusion. Large abscess involving the right lower lobe. Sravanthi Lane MD Objective Remarks GENERAL: Alert, oriented 3, NAD. SKIN: Warm and dry. HEAD: Normocephalic. EYES: No scleral icterus. Left eye covered with dressing. NECK: Supple, trachea midline. No JVD or lymphadenopathy. CARDIOVASCULAR: Tachycardic without murmurs, gallops, or rubs. RESPIRATORY: Moderate air entry, right lung diminished breath sound. No accessory muscle use. GASTROINTESTINAL: Abdomen soft, non-tender, nondistended. MUSCULOSKELETAL: No cyanosis, or edema. BACK: Nontender without obvious deformity. No CVA tenderness. Procedures 07/12/2017 Pars plana vitrectomy, pars plana lensectomy, intravitreal antibiotic injection, retinal detachment repair, left eye. A/P Assessment and Plan Ms. Luque is 31 y/o female with a history of untreated hepatitis C, IVDA, and tobacco abuse who was transferred from [facility] to [facility] for ophthalmology surgical evaluation by Dr. Kowalski. Tricuspid valve endocarditis - Dr. Mcginnis discussed case with hospitalist from [facility] the transferring facility - Continue Ceftriaxone 2 gram IV q24h until 07/19 per ID at [facility] - Acetaminophen, [place] as needed for pain. Will add Morphine 4mg Q6hrs PRN for breakthrough. Sepsis (Fever above 101, resp rate over 20 on 07/12/2017, tricuspid endocarditis) . Right lung abscess - Blood cx negative so far. - CT Chest shows right sided abscess. Patient underwent chest tube placement 07/14/2017 by IR. - Infection disease is following - If ID clears patient to go back to [facility], we can discharge patient. - Cardiothoracic consult pending. Uveitis and endogenous endophthalmitis Left Retinal detachment - patient was seen by service member at [facility] - Patient was evaluated by service member Dr. Kowalski. Patient underwent ophthalmological surgical intervention on 07/12/2017 - Dr. Kowalski will likely re-evaluate patient on 07/16/2017 in his office. Full code. Ambulation. Alecia Zarate DO Jul 15, 2017 10:52 am
[2017-07-15] MEDS: MORPHINE SULFATE 4 MG/ML INJ IV PUSH PRN ×3 (11:18→23:49)
[2017-07-15 12:00] VITALS: BP 107/72; PULSE 97; RESP 18; TEMP 99.5; O2SAT 95
--- NOTE | 2017-07-15 14:11 | ECHRPT ---
Indication: ENDOCARDITIS, SEPSIS CONCLUSIONS Normal left ventricular size. Wall thickness is normal. The left ventricular systolic function is normal with an estimated ejection fraction in the range of 55-60%. Normal wall motion. The right atrial size is mildly dilated. Small, roughly 5 x 5 mm, globular mobile echodensity on atrial surface of the anterior leaflet of th e tricuspid valve consistent with vegetation. Irregular, roughly 10 x 4 mm, mobile echodensity on the atrial surface of the posterior leaflet of t he tricuspid valve consistent with vegetation. There is moderate to severe tricuspid valve regurgitation. The estimated pulmonary arterial pressure is 54 mmHg. BP: 114 / 65 HR: 140 Rhythm: Sinus MEASUREMENTS (Male / Female) Normal Values Technical Quality:Fair 2D ECHO LV Diastolic Diameter PLAX 4.6 cm 4.2 - 5.9 / 3.9 - 5.3 cm LV Systolic Diameter PLAX 3.5 cm IVS Diastolic Thickness 0.8 cm 0.6 - 1.0 / 0.6 - 0.9 cm LVPW Diastolic Thickness 0.8 cm 0.6 - 1.0 / 0.6 - 0.9 cm LV Relative Wall Thickness 0.4 RV Internal Dim ED PLAX 3.4 cm LVOT Diameter 1.8 cm Aortic Root Diameter 3.2 cm LA Systolic Diameter LX 2.5 cm 3.0 - 4.0 / 2.7 - 3.8 cm M-MODE AV Cusp Separation MM 1.6 cm DOPPLER AV Peak Velocity 96.5 cm/s AV Peak Gradient 3.7 mmHg AV Mean Gradient 2.0 mmHg AV Velocity Time Integral 14.5 cm LVOT Peak Velocity 85.0 cm/s LVOT Peak Gradient 2.9 mmHg LVOT Velocity Time Integral 11.8 cm AV Area Cont Eq vti 2.1 cm AV Area Cont Eq pk 2.2 cm Mitral E Point Velocity 69.1 cm/s Mitral A Point Velocity 60.7 cm/s Mitral E to A Ratio 1.1 LV E' Lateral Velocity 19.5 cm/s Mitral E to LV E' Lateral Ratio 3.5 LV E' Septal Velocity 10.6 cm/s Mitral E to LV E' Septal Ratio 6.5 TR Peak Velocity 335.0 cm/s TR Peak Gradient 44.9 mmHg Right Atrial Pressure 10.0 mmHg Pulmonary Artery Systolic Pressu 54.9 mmHg Right Ventricular Systolic Press 54.9 mmHg PV Peak Velocity 64.7 cm/s PV Peak Gradient 1.7 mmHg FINDINGS LEFT VENTRICLE Normal left ventricular size. Wall thickness is normal. The left ventricular systolic function is normal with an estimated ejection fraction in the range of 55-60%. Normal wall motion. RIGHT VENTRICLE Upper normal right ventricular size and normal systolic function. LEFT ATRIUM The left atrial size is normal. RIGHT ATRIUM The right atrial size is mildly dilated. ATRIAL SEPTUM No atrial level shunt is demonstrated by color flow Doppler interrogation. AORTA The aortic root and proximal ascending aorta are not well visualized. MITRAL VALVE Structurally normal mitral valve. No mitral valve stenosis or regurgitation. AORTIC VALVE Trileaflet aortic valve. No aortic valve stenosis or regurgitation. TRICUSPID VALVE Small, roughly 5 x 5 mm globular mobile echodensity on atrial surface of the anterior leaflet of the tricuspid valve consistent with vegetation. Irregular, roughly 10 x 4 mm, mobile echodensity on the atrial surface of the posterior leaflet of t he tricuspid vavle consistent with vegetation. There is moderate to severe tricuspid valve regurgitation. The estimated pulmonary arterial pressure is 54 mmHg. PULMONARY VALVE Trivial pulmonary valve regurgitation. VESSELS The inferior vena cava is normal in size. PERICARDIUM No pericardial effusion. Lewis Pulido MD (Electronically Signed) Final Date:15 July 2017 14:10
[2017-07-15] MEDS: TOBRAMYCIN/DEXAMETHASONE OPTH OINT 3.5 GM TUBE LEFT EYE SCH ×2 (14:26→18:01)
--- NOTE | 2017-07-15 14:29 | HHI.IDPN ---
Subjective Subjective Remarks is a 31-year-old female with past medical history significant for hepatitis C-treatment luis and IV drug use who was transferred from [facility] to [facility] for ophthalmology surgical evaluation for severe left eye endogenous endophthalmitis. Patient was admitted to [facility] on 06/16/17 for septic emboli, sepsis, endocarditis and impending respiratory failure. She has been treated for tricuspid valve endocarditis and streptococcal septic shock. Reportedly, patient was initially seen at [place] for pneumonia and was discharged from the ED with a Zithromax prescription. After failing to improve, she went went to [facility] and with in a day of her hospitalization developed respiratory failure and required intubation. Blood culture positive for Streptococcus mitis. She underwent a US guided thoracentesis right side with 1000ml of turbid serosanguineous fluid removed. She was treated with IV Ceftriaxone and per her discharge instructions, she was to continue with IV ceftriaxone through . Approximately one week ago, she began to have visual deficits in the left eye with swelling. She was seen daily by seismic observer at the other facility and 3 days ago it was determined that she needed surgical intervention with subsequent transfer to our facility for ophthalmology surgical evaluation by Dr. Kowalski. 07/12/17, patient underwent Pars plana vitrectomy, pars plana lensectomy, intravitreal antibiotic injection, retinal detachment repair, left eye performed by Dr. Kowalski. During hospitalization here at [facility], she's had persistent cough and fevers. Infectious disease consultation was requested for evaluation and management of persistent fevers and tricuspid valve endocarditis. Patient is currently awake and alert lying in bed. She is a poor historian and much of the medical history is obtained from review of previous medical records and our EMR. She complains of fever, chills and sweats. She complains of persistent cough with brownish sputum production. She has difficulty with breathing. She denies any chest pain. Currently, her fever is 103. She is tachycardic with a heart rate of 114. White count is 6.2. Blood cultures are pending. Lactic acid is 2.2. Overnight events reviewed No fevers No rash No diarrhea Uo ok. Left eye no vision. Rt eye vision intact no floaters. Antibiotics Ceftriaxone IV Vanco IV Lines Line sites with no e.o infection Allergies: Coded Allergies: No Known Allergies (Unverified , 07/11/17) Objective . Vital Signs Date Time Temp Pulse Resp B/P (MAP) Pulse Ox O2 Delivery O2 Flow Rate FiO2 07/15/17 12:00 99.5 97 18 107/72 (84) 95 07/15/17 08:00 98.3 112 17 108/65 (79) 92 07/15/17 06:17 18 07/15/17 04:00 97.7 99 17 102/67 (79) 97 07/15/17 02:21 18 07/15/17 00:00 97.8 97 18 106/70 (82) 96 07/14/17 21:43 18 07/14/17 20:00 99.5 98 17 105/80 (88) 94 07/14/17 16:00 98.5 99 18 96/66 (76) 94 . Laboratory Tests Test 07/14/17 05:32 07/14/17 23:32 07/15/17 04:44 Lactic Acid Level 1.8 mmol/L 1.1 mmol/L Lactate Dehydrogenase 189 U/L C-Reactive Protein 18.40 MG/DL Total Protein 7.7 GM/DL Creatinine 0.58 MG/DL Estimat Glomerular Filtration Rate 120 ML/MIN Microbiology Date/Time Source Procedure Growth Status 07/13/17 12:17 Blood Peripheral Aerobic Blood Culture - Preliminary NO GROWTH IN 2 DAYS Resulted 07/13/17 12:17 Blood Peripheral Anaerobic Blood Culture - Preliminary NO GROWTH IN 2 DAYS Resulted 07/13/17 12:00 Blood Peripheral Aerobic Blood Culture - Preliminary NO GROWTH IN 2 DAYS Resulted 07/13/17 12:00 Blood Peripheral Anaerobic Blood Culture - Preliminary NO GROWTH IN 2 DAYS Resulted 07/14/17 10:30 Fluid Pleural Fluid Gram Stain - Final Resulted 07/14/17 10:30 Body Fluid Culture - Preliminary Viridans Streptococcus Grp Resulted Imaging Last Impressions Chest X-Ray 07/14/17 0000 Signed Impressions: Service Date/Time: Friday, July 14, 2017 10:58 - CONCLUSION: Chest tube on the right in good position Kaiser Wong MD FACR Chest Tube Insertion 07/14/17 0000 Signed Impressions: Service Date/Time: Friday, July 14, 2017 10:20 - CONCLUSION: Uncomplicated 10-Divehi chest tube placement on the right. Fluid was sent for Gram stain and culture. Kaiser Wong MD FACR Chest CT 07/13/17 0000 Signed Impressions: Service Date/Time: Thursday, July 13, 2017 11:20 - CONCLUSION: Multifocal airspace consolidation and small left lower lobe pleural effusion. Large abscess involving the right lower lobe. Sravanthi Lane MD Physical Exam GENERAL: This is a well-nourished, well-developed thin young female patient, in no apparent distress. Awake and alert. SKIN: No rashes, ecchymoses or lesions. Very warm to the touch. HEAD: Atraumatic. Normocephalic. No temporal or scalp tenderness. EYES: Pupil equal round and reactive right eye. Extraocular motions intact right eye. No scleral icterus, injection or drainage right eye. Left eye not assessed due to recent surgery. ENT: Nose without bleeding, purulent drainage. Throat without erythema, tonsillar hypertrophy or exudate. Uvula midline. Airway patent. NECK: Trachea midline. No lymphadenopathy. Supple, nontender, no meningeal signs. CARDIOVASCULAR: Tachycardic with 4-5/6 systolic murmur. RESPIRATORY: Diminished breath sounds on the right with creps noted in right lung base. No accessory muscle use. Right CT in place with yellow brown fluid noted. GASTROINTESTINAL: Abdomen soft, non-tender, nondistended. No hepato-splenomegaly , or palpable masses. No guarding. MUSCULOSKELETAL: Extremities without clubbing, cyanosis, or edema. No joint tenderness, effusion, or edema noted. No calf tenderness. NEUROLOGICAL: Awake and alert. Cranial nerves II through XII grossly intact. Motor and sensory grossly within normal limits. Normal speech. PSYCHIATRIC: Appropriate mood and affect. Normal judgment and insight. Assessment & Plan Remarks Sepsis secondary to strept mitis endocarditis and complications Right lung abscess/empyema likely from septic emboli Possible aspiration PNA/HCAP Hx of streptococcal septic shock Hx of septic emboli Hx of right pleural effusion s/p thoracentesis with fluid analysis cytology with both acute and chronic inflammatory cells and no malignancy, cx with no growth x 5 days -Chest x-ray reveals bilateral pulmonary opacity likely representing mild pulmonary edema and bilateral small pleural effusions, images reviewed by pa -CT chest reveals multifocal airspace consolidation and small left lower lobe pleural effusion, large abscess involving the right lower lobe, images reviewed by pa -blood culture positive for Streptococcus mitis -treated with IV Ceftriaxone Acute respiratory failure status post intubation and subsequent extubation on Left eye uveitis and endogenous endophthalmitis -s/p pars plana vitrectomy, pars plana lensectomy, intravitreal antibiotic injection, retinal detachment repair, left eye. Tricuspid valve endocarditis IVDU Hep C, treatment naive RECOMMENDATIONS: Continue on IV Ceftriaxone. Continue IV Vancomycin, pharmacy to dose, target 15-[address] guided thoracentesis right pleural effusion/abscess, Fluid studies reviewed concerning for empyema based on CT findings and fluid studies so far. deepa Kenney will see patient today for possible VATS or decortication procedure If any evidence of worsening sepsis please add Cefepime IV for PSAE coverage for HCAP. Follow 2D ECHO follow cultures Follow clinically. deepa Rodney hospitalist. Nai Hurt RN, MD Jul 15, 2017 14:29
[2017-07-15 16:00] VITALS: BP 97/59; PULSE 98; RESP 16; TEMP 99.1; O2SAT 94
[2017-07-15 16:18] LABS: AMYLASE BODY FLUID 10 U/L; AMYLASE BODY FLUID TYPE PLEURAL
[2017-07-15] MEDS: guaiFENesin/DEXTROMETHORPHAN 200 MG/20 MG/10 ML CUP PO PRN (17:45)
[2017-07-15] MEDS ORDERED: PHARMACY ORDERED LAB ONE (17:45)
--- NOTE | 2017-07-15 18:14 | MB ---
cc: Sravanthi Jimenez Sohit MD DATE: 07/15/2017 HISTORY OF PRESENT ILLNESS: A 31-year-old female transferred from [facility] for tricuspid valve endocarditis, recent sepsis, septic shock, also status post ventilator-dependent respiratory failure, since extubated, with right pleural effusion. Also, with history of IV drug use, heroin, which she has been using for the last 2 years. She last admitted to the day prior to her admission to [facility]. She was also found to have endophthalmitis and underwent pars plana vitrectomy, pars plana lensectomy, intravitreal antibiotic injection, retinal detachment repair of the left eye. That was on 07/12/2017. CT chest here showed multifocal airspace consolidation, large abscess involving the right lower lobe. She underwent pigtail catheter insertion on 07/14, which drained 600 mL of pus. Fluid has grown viridian Strep. Blood cultures have been negative. C-reactive protein was 18. We were consulted in regard to the right empyema. PAST MEDICAL HISTORY: Recent endocarditis, being treated with IV antibiotics. History of hepatitis C, recent retinal detachment of the left eye, status post surgery, and also status post right pigtail catheter placement. ALLERGIES: SHE HAS NO KNOWN ALLERGIES MEDICATIONS: No home medications other than what she was transferred here on. FAMILY HISTORY: Per the patient, both parents are alive and healthy. SOCIAL HISTORY: The patient is single and has 2 children. Both children live with her father. She is unemployed. History of heroin IV drug use for the last 2 years. She has been injecting in her arms and legs. She works occasionally as a dancer. REVIEW OF SYSTEMS: Denies any weight loss. No headache, fevers. PHYSICAL EXAMINATION: VITAL SIGNS: Blood pressure 108/70, heart rate of 90, temp max 99.5, respiratory rate of 18. GENERAL: Well nourished, well developed female, in no acute distress. HEENT: Head is normocephalic, atraumatic. Left eye not assessed due to recent surgery. The right eye pupil is intact and reactive. Oral mucosa pink, moist. NECK: Supple. HEART: Sounds S1 and S2, slightly tachycardic, with a grade 3/6 systolic murmur. LUNGS: Diminished in the right, with some crepitus. She has a right chest tube in place with yellowish-brown fluid. ABDOMEN: Soft, nontender. No masses or organomegaly. EXTREMITIES: No cyanosis, clubbing or edema. She does have some track landeros to both lower extremities and to her upper forearms. NEUROLOGIC: She is A and O x3. No gross motor deficits. LABORATORY DATA: Shows hemoglobin 8.2, hematocrit of 25, white cell count of 6.2, platelet count of 229. Sodium 139, potassium 4.6, BUN of 11, creatinine 0.67, AST 44, ALT 24, albumin 1.9. INR was 1.2. Urinalysis was unremarkable. Urine tox was positive for opiates, which she may have received in her prior hospital. Her glucose is 35 on the pleural fluid, white cell count of 112,000. Cytology for the pleural fluid negative for malignant cells. PLAN: At this time, the patient has a right pleural effusion, probable empyema and/or abscess. Will need right video-assisted thoracoscopy and probable decortication. We will recheck CT chest in the a.m. She has also had recent diagnosis of tricuspid valve endocarditis. The patient will need to be continued on IV antibiotics and again this was discussed with the patient that she would need to be drug-free for 6 months with repeat urine drug screen and reevaluation by echo of the tricuspid valve. She has current history of IV drug use and needs to enter a treatment center. She also has hepatitis C, recent left eye uveitis and endophthalmitis and status post vitrectomy, lensectomy, antibiotic injection. We will continue to follow. Possible planning for surgery on depending upon the results of the CT scan. SUKHI Islas MD JRT// , 05:11 PM , 05:54 PM LEX
[2017-07-15 20:00] VITALS: BP 101/61; PULSE 100; RESP 18; TEMP 98.6; O2SAT 98
--- NOTE | 2017-07-15 20:39 | HHI.PR ---
Subjective Remarks 31 YOWF with Endocarditis, Endophthalmitis, Left had Right chest tube placed Pl fluid consistant with Empyema has Fever Pl fluid str viridens Objective Vital Signs Vital Signs Date Time Temp Pulse Resp B/P (MAP) Pulse Ox O2 Delivery O2 Flow Rate FiO2 07/15/17 16:00 99.1 98 16 97/59 (72) 94 07/15/17 12:00 99.5 97 18 107/72 (84) 95 07/15/17 08:00 98.3 112 17 108/65 (79) 92 07/15/17 06:17 18 07/15/17 04:00 97.7 99 17 102/67 (79) 97 07/15/17 02:21 18 07/15/17 00:00 97.8 97 18 106/70 (82) 96 07/14/17 21:43 18 I/O 07/14/17 07/14/17 07/14/17 07/15/17 07/15/17 07/15/17 07:00 15:00 23:00 07:00 15:00 23:00 Intake Total 0 ml 350 ml 850 ml 760 ml 350 ml 960 ml Output Total 340 ml 130 ml Balance 0 ml 350 ml 510 ml 760 ml 350 ml 830 ml Intake Oral 0 ml 600 ml 760 ml 960 ml IV Total 350 ml 250 ml 350 ml Output Chest Tube Drainage Total 340 ml 130 ml # Voids 2 4 2 2 # Bowel Movements 0 Result Diagram: 07/13/17 1200 07/15/17 0444 Objective Remarks GENERAL: MBMN WF, mild discomfort SKIN: Warm and dry. HEAD: Normocephalic. EYES: No scleral icterus. No injection or drainage. no vision in left eye due to endophthalmitis NECK: Supple, trachea midline. No JVD or lymphadenopathy. CARDIOVASCULAR: Regular rate and rhythm without murmurs, gallops, or rubs. RESPIRATORY: Breath sounds equal bilaterally. No accessory muscle use. Right chest tube draining GASTROINTESTINAL: Abdomen soft, non-tender, nondistended. MUSCULOSKELETAL: No cyanosis, or edema. BACK: Nontender without obvious deformity. No CVA tenderness. A/P Assessment and Plan IMPRESSION: 1. Right pleural effusion, possible empyema or abscess. 2. Left lung infiltrate and effusion. 3. Endocarditis. 4. Endophthalmitis. 5. IV drug use. 6. Nicotine use PLAN: Chest tube to suction Abx per ID DW Dr.Tanuja Gabriel CTS consulted Stable on Onel Talbot MD Jul 15, 2017 20:38
[2017-07-16] VITALS: BP 97/64; PULSE 100; RESP 17; TEMP 98.4; O2SAT 95
[2017-07-16] MEDS: VANCOMYCIN 1,000 MG/NS 250 ML IV SCH ×4 (01:42→10:00)
[2017-07-16] MEDS: guaiFENesin/DEXTROMETHORPHAN 200 MG/20 MG/10 ML CUP PO PRN ×2 (02:58→11:45)
[2017-07-16 04:16] VITALS: BP 126/77; PULSE 109; RESP 17; TEMP 99.5; O2SAT 96
[2017-07-16] MEDS: oxyCODONE/ACETAMINOPHEN 5 MG/325 MG TAB PO PRN ×3 (04:25→17:45)
[2017-07-16] MEDS: MORPHINE SULFATE 4 MG/ML INJ IV PUSH PRN ×3 (06:59→18:57)
[2017-07-16 08:00] VITALS: BP 108/71; PULSE 114; RESP 17; TEMP 98.3; O2SAT 94
[2017-07-16] MEDS: ARTIFICIAL TEARS OPTH SOLN 15 ML BTL EACH EYE SCH ×4 (08:40→21:00)
[2017-07-16] MEDS: ATROPINE SULFATE 1% OPHT SOLN 5 ML BTL LEFT EYE SCH ×2 (09:00→21:00)
[2017-07-16] MEDS: MOXIFLOXACIN 0.5% OPHT SOLN 3 ML BTL LEFT EYE SCH ×4 (09:00→21:00)
[2017-07-16] MEDS: cefTRIAXone INJ 2,000 MG in SODIUM CHLORIDE 0.9% INJ 100 ML IV SCH (09:00)
[2017-07-16] MEDS: SODIUM CHLORIDE 0.9% FLUSH 10 ML FLUSH IV FLUSH SCH ×2 (09:00→21:00)
[2017-07-16] MEDS: TOBRAMYCIN/DEXAMETHASONE OPTH OINT 3.5 GM TUBE LEFT EYE SCH ×3 (09:00→17:48)
[2017-07-16] MEDS: prednisoLONE ACETATE 1% OPHT SUSP 5 ML BTL LEFT EYE SCH ×4 (09:00→21:00)
[2017-07-16] MEDS ORDERED: PHARMACY ORDERED LAB ONE (09:45)
[2017-07-16] MEDS: METOPROLOL TARTRATE 50 MG TAB PO SCH ×3 (11:20→17:44)
[2017-07-16 12:00] VITALS: BP 130/67; PULSE 120; RESP 18; TEMP 99.4; O2SAT 98
[2017-07-16] MEDS ORDERED: CEFT2INJ2 IV (14:34)
--- NOTE | 2017-07-16 14:34 | RADRPT ---
EXAM DATE/TIME: 07/16/2017 13:34 [place] COMPARISON: CT THORAX W/O CONTRAST, July 13, 2017, 11:20. INDICATIONS : Right pleural effusion. RADIATION DOSE: 7.24 CTDIvol (mGy) MEDICAL HISTORY : Cardiovascular disease. Hepatitis C. SURGICAL HISTORY : Right chest tube. ENCOUNTER: Subsequent ACUITY: 4 - 6 days PAIN SCALE: 8/10 LOCATION: Right chest TECHNIQUE: Volumetric scanning of the chest was performed. Using automated exposure control and adjustment of t he mA and/or kV according to patient size, radiation dose was kept as low as reasonably achievable to obtain optimal diagnostic quality images. DICOM format image data is available electronically for r eview and comparison. Follow-up recommendations for detected pulmonary nodules are based at a minimum on nodule size and pa tient risk factors according to Fleischner Society Guidelines. FINDINGS: The previously noted large pleural fluid and air collection within the right posterior hemithorax is almost completely decompressed status post chest tube placement. A small collection of air remains. T here is significant thickening of the pleura surrounding this cavity. There is a small left pleural e ffusion which is stable in appearance compared to previous examination. Scattered bilateral infiltrat es are again noted. There is evidence of persistent partial cavitation of some of these focal infiltr ates. The heart remains enlarged. The spleen is also enlarged. No significant mediastinal, hilar or a xillary lymphadenopathy is noted CONCLUSION: 1. The previously noted large pleural fluid and air collection within the right posterior hemithorax is almost completely decompressed status post chest tube placement with minimal amount of air remaini ng. There is significant thickening of the pleura surrounding this cavity. 2. Stable scattered patchy infiltrates with persistent partial cavitation of some of these focal infi ltrates. 3. Small persistent left pleural effusion. 4. Cardiomegaly. 5. Splenomegaly. Alexei Marcos MD on July 16, 2017 at 14:25 Board Certified Radiologist. This report was verified electronically.
[2017-07-16] MEDS ORDERED: OXYC1TAB63 PO (14:35)
--- NOTE | 2017-07-16 14:36 | HHI.DS ---
Discharge Summary Admission Date Jul 11, 2017 at 00:08 Discharge Date: Jul 16, 2017 Admitting Diagnosis Binocular Iritis left eye . (1) Lung abscess ICD Code: J85.2 - Abscess of lung without pneumonia Diagnosis: Principal (2) Retinal detachment ICD Code: H33.20 - Serous retinal detachment, unspecified eye Diagnosis: Principal (3) Endophthalmitis, left ICD Code: H44.002 - Unspecified purulent endophthalmitis, left eye Diagnosis: Principal (4) Endocarditis ICD Code: I38 - Endocarditis, valve unspecified Diagnosis: Principal Procedures 07/12/2017 Pars plana vitrectomy, pars plana lensectomy, intravitreal antibiotic injection, retinal detachment repair, left eye. Brief History - From Admission Ms. Luque is 31 y/o female with a history of untreated hepatitis C, IVDA, and tobacco abuse who was transferred from [facility] to [facility] for ophthalmology surgical evaluation by Dr. Kowalski. The patient is seen in her hospital room. She has been an inpatient at [facility] since 06/16/17 where she was being treated for tricuspid valve endocarditis and streptococcal septic shock. She reports she was initially seen at a hospital in [place] for pneumonia and was discharged from the ED with Zithromax Rx. She did not improve and went to [facility]. She reports that 1 day into her hospitalization, she developed respiratory failure and was intubated but eventually extubated. She is on a prolonged course of IV antibiotics. Her visual symptoms have been ongoing since one week ago when her left eyelid got "swollen" and she started to have visual deficits. She has been seen daily by an information and referral director at the other hospital. About three days ago, he determined that she would need surgery but they did not have a specialist available to perform the procedure she needs. She reports some right eye pain initially but then denies pain after EOM exam and penlight examination. CBC/BMP: 07/13/17 1200 07/15/17 0444 Significant Findings Laboratory Tests Test 07/13/17 23:00 07/14/17 05:32 07/14/17 10:30 07/14/17 17:13 Urine Mucus FEW /lpf (OCC) Urine Opiates Screen POS (NEG) Prothrombin Time 11.9 SEC (9.8-11.6) C-Reactive Protein 18.40 MG/DL (0.00-0.30) Pleural Fluid WBC [id number] /[id number] (0-10) Vancomycin Level Trough 13.9 MCG/ML (5.0-10.0) Test 07/14/17 23:32 07/15/17 04:44 07/15/17 18:06 Vancomycin Level Trough 17.8 MCG/ML (5.0-10.0) Imaging Last Impressions Chest X-Ray 07/14/17 0000 Signed Impressions: Service Date/Time: Friday, July 14, 2017 10:58 - CONCLUSION: Chest tube on the right in good position Kaiser Wong MD FACR Chest Tube Insertion 07/14/17 0000 Signed Impressions: Service Date/Time: Friday, July 14, 2017 10:20 - CONCLUSION: Uncomplicated 10-Uzbek chest tube placement on the right. Fluid was sent for Gram stain and culture. Kaiser Wong MD FACR Chest CT 07/13/17 0000 Signed Impressions: Service Date/Time: Thursday, July 13, 2017 11:20 - CONCLUSION: Multifocal airspace consolidation and small left lower lobe pleural effusion. Large abscess involving the right lower lobe. Sravanthi Lane MD PE at Discharge GENERAL: Alert, oriented 3, NAD. SKIN: Warm and dry. HEAD: Normocephalic. EYES: No scleral icterus. Left eye covered with dressing. NECK: Supple, trachea midline. No JVD or lymphadenopathy. CARDIOVASCULAR: Tachycardic without murmurs, gallops, or rubs. RESPIRATORY: Moderate air entry, right lung diminished breath sound. No accessory muscle use. GASTROINTESTINAL: Abdomen soft, non-tender, nondistended. MUSCULOSKELETAL: No cyanosis, or edema. BACK: Nontender without obvious deformity. No CVA tenderness. Pt update on day of discharge Patient is currently doing well. No acute concerns. No fever, chills. Hospital Course Ms. Luque is 31 y/o female with a history of untreated hepatitis C, IVDA, and tobacco abuse who was transferred from [facility] to [facility] for ophthalmology surgical evaluation by Dr. Kowalski. Tricuspid valve endocarditis - Dr. Mcginnis discussed case with hospitalist from [facility] the transferring facility - Continue Ceftriaxone 2 gram IV q24h until 07/19 per ID at [facility] - Patient received Vancomycin as well. However, ID recommended discontinuing Vancomycin. - Acetaminophen, [place] as needed for pain. Will add Morphine 4mg Q6hrs PRN for breakthrough. Sepsis (Fever above 101, resp rate over 20 on 07/12/2017, tricuspid endocarditis) . -- Currently resolved. Right lung abscess - Blood cx negative so far. Pleural fluid is growing Strep Viridans. - CT Chest shows right sided abscess. Patient underwent chest tube placement 07/14/2017 by IR. - Discussed with ID and CT surgery - both are okay for patient to go back to [facility]. Cardiothoracic surgery can be consulted at [facility] for further evaluation. Uveitis and endogenous endophthalmitis Left Retinal detachment - patient was seen by information and referral director at [facility] - Patient was evaluated by information and referral director Dr. Kowalski. Patient underwent ophthalmological surgical intervention on 07/12/2017 - Patient was again evaluated on 07/16/2017. As Dr. 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 Discussed with Dr. Calvo (hospitalist at [facility]. Essentially, patient came to the [place] for ophthalmology eval and surgery. After surgery, however, patient had persistent fever which prompted us to obtain a CT chest. CT Chest indicated right lung abscess. ID was consulted. Pleural fluid grew Strep. Patient was already on Ceftriaxone. ID added Vancomycin. Blood cx negative. A chest tube was placed to drain abscess. We consulted Cardiothoracic (CT) surgery who evaluated patient. However, CT surgeon stated that patient can be discharged from [place]. ID also is okay with our discharge plan. I requested Dr. Calvo to obtain CT surgery consult at their hospital for possible decortication by CT surgery. Pt Condition on Discharge: Good Discharge Disposition: Disch to Another Hospital Discharge Time: > 30 minutes Discharge Instructions DIET: Follow Instructions for: Heart Healthy Diet Activities you can perform: Regular-No Restrictions New Medications: Ceftriaxone Inj (Ceftriaxone Inj) 2 Gm/50 Ml Bagp 2 GM IV Q24H for Infection for 3 Days, BAG 0 Refills Oxycodone HCl/Acetaminophen (Oxycodone-Acetaminophen 5-325) 5 Mg-325 Mg Tablet 1 TAB PO Q6H PRN for pain >5, #20 TAB Continued Medications: Atropine Opth Drops (Atropine Opth Drops) 1% Soln 1 DROP LEFT EYE BID for Infection, #2 ML 0 Refills Metoprolol Tartrate (Lopressor) 50 Mg Tab 50 MG PO TID, #60 TAB 0 Refills Ofloxacin Opth Drops (Ocuflox Opth Drops) 0.3 % Drops 1 DROP LEFT EYE QID for Infection, #1 BOTTLE 0 Refills Prednisolone Acetate Opth 1% (Pred Forte Opth 1%) 1% Susp 1 DROP LEFT EYE Q4HR for Inflammation, #1 BOTTLE 0 Refills [Isopto Tears 1.4%] () 1 DROP EACH EYE QID Discontinued Medications: [Ceftriaxone] () 2 MG IM DAILY for Infection Alecia Zarate DO Jul 16, 2017 14:36
[2017-07-16 16:00] VITALS: BP 106/68; PULSE 99; RESP 18; TEMP 98.2; O2SAT 94
--- NOTE | 2017-07-16 20:50 | HHI.PR ---
Subjective Remarks 31 YOWF with Endocarditis, Endophthalmitis, Left had Right chest tube placed Pl fluid consistant with Empyema Objective Vital Signs Vital Signs Date Time Temp Pulse Resp B/P (MAP) Pulse Ox O2 Delivery O2 Flow Rate FiO2 07/16/17 16:00 98.2 99 18 106/68 (81) 94 07/16/17 12:00 99.4 120 18 130/67 (88) 98 07/16/17 08:00 98.3 114 17 108/71 (83) 94 07/16/17 05:44 18 07/16/17 04:16 99.5 109 17 126/77 (93) 96 07/16/17 00:00 98.4 100 17 97/64 (75) 95 07/15/17 23:56 18 I/O 07/15/17 07/15/17 07/15/17 07/16/17 07/16/17 07/16/17 07:00 15:00 23:00 07:00 15:00 23:00 Intake Total 760 ml 350 ml 960 ml 780 ml 1440 ml Output Total 130 ml 170 ml Balance 760 ml 350 ml 830 ml 780 ml -170 ml 1440 ml Intake Oral 760 ml 960 ml 780 ml 1440 ml IV Total 350 ml Output Chest Tube Drainage Total 130 ml Drainage Total 170 ml # Voids 2 2 2 4 # Bowel Movements 0 0 Result Diagram: 07/13/17 1200 07/15/17 0444 Objective Remarks GENERAL: MBMN WF, mild discomfort SKIN: Warm and dry. HEAD: Normocephalic. EYES: No scleral icterus. No injection or drainage. no vision in left eye due to endophthalmitis NECK: Supple, trachea midline. No JVD or lymphadenopathy. CARDIOVASCULAR: Regular rate and rhythm without murmurs, gallops, or rubs. RESPIRATORY: Breath sounds equal bilaterally. No accessory muscle use. Right chest tube draining GASTROINTESTINAL: Abdomen soft, non-tender, nondistended. MUSCULOSKELETAL: No cyanosis, or edema. BACK: Nontender without obvious deformity. No CVA tenderness. A/P Assessment and Plan IMPRESSION: 1. Right pleural effusion, possible empyema or abscess. 2. Left lung infiltrate and effusion. 3. Endocarditis. 4. Endophthalmitis. 5. IV drug use. 6. Nicotine use PLAN: Chest tube to suction Abx per ID Stable on RA DC plans underway. Onel Malik MD Jul 16, 2017 20:50
--- NOTE | 2017-07-16 21:52 | HHI.PR ---
Subjective Remarks NOT SEEN Objective Vitals Vital Signs Date Time Temp Pulse Resp B/P (MAP) Pulse Ox O2 Delivery O2 Flow Rate FiO2 07/16/17 16:00 98.2 99 18 106/68 (81) 94 07/16/17 12:00 99.4 120 18 130/67 (88) 98 07/16/17 08:00 98.3 114 17 108/71 (83) 94 07/16/17 05:44 18 07/16/17 04:16 99.5 109 17 126/77 (93) 96 07/16/17 00:00 98.4 100 17 97/64 (75) 95 07/15/17 23:56 18 I/O 07/15/17 07/15/17 07/15/17 07/16/17 07/16/17 07/16/17 07:00 15:00 23:00 07:00 15:00 23:00 Intake Total 760 ml 350 ml 960 ml 780 ml 1440 ml Output Total 130 ml 170 ml Balance 760 ml 350 ml 830 ml 780 ml -170 ml 1440 ml Intake Oral 760 ml 960 ml 780 ml 1440 ml IV Total 350 ml Output Chest Tube Drainage Total 130 ml Drainage Total 170 ml # Voids 2 2 2 4 # Bowel Movements 0 0 Result Diagram: 07/13/17 1200 07/15/17 0444 Imaging Last Impressions Chest CT 07/16/17 0000 Signed Impressions: Service Date/Time: Sunday, July 16, 2017 13:34 - CONCLUSION: 1. The previously noted large pleural fluid and air collection within the right posterior hemithorax is almost completely decompressed status post chest tube placement with minimal amount of air remaining. There is significant thickening of the pleura surrounding this cavity. 2. Stable scattered patchy infiltrates with persistent partial cavitation of some of these focal infiltrates. 3. Small persistent left pleural effusion. 4. Cardiomegaly. 5. Splenomegaly. Alexei Marcos MD Chest X-Ray 07/14/17 0000 Signed Impressions: Service Date/Time: Friday, July 14, 2017 10:58 - CONCLUSION: Chest tube on the right in good position Kiaser Wong MD FACR Chest Tube Insertion 07/14/17 0000 Signed Impressions: Service Date/Time: Friday, July 14, 2017 10:20 - CONCLUSION: Uncomplicated 10-Urdu chest tube placement on the right. Fluid was sent for Gram stain and culture. Kaiser Wong MD FACR Objective Remarks GENERAL: Alert, oriented 3, NAD. SKIN: Warm and dry. HEAD: Normocephalic. EYES: No scleral icterus. Left eye covered with dressing. NECK: Supple, trachea midline. No JVD or lymphadenopathy. CARDIOVASCULAR: Tachycardic without murmurs, gallops, or rubs. RESPIRATORY: Moderate air entry, right lung diminished breath sound. No accessory muscle use. GASTROINTESTINAL: Abdomen soft, non-tender, nondistended. MUSCULOSKELETAL: No cyanosis, or edema. BACK: Nontender without obvious deformity. No CVA tenderness. Procedures 07/12/2017 Pars plana vitrectomy, pars plana lensectomy, intravitreal antibiotic injection, retinal detachment repair, left eye. CT placement A/P Problem List: (1) Endocarditis ICD Code: I38 - Endocarditis, valve unspecified Assessment and Plan Ms. Luque is 31 y/o female with a history of untreated hepatitis C, IVDA, and tobacco abuse who was transferred from [facility] to [facility] for ophthalmology surgical evaluation by Dr. Kowalski. Tricuspid valve endocarditis - Dr. Mcginnis discussed case with hospitalist from [facility] the transferring facility - Continue Ceftriaxone 2 gram IV q24h until 07/19 per ID at [facility] - Patient received Vancomycin as well. However, ID recommended discontinuing Vancomycin. - Acetaminophen, [place] as needed for pain. Will add Morphine 4mg Q6hrs PRN for breakthrough. Sepsis (Fever above 101, resp rate over 20 on 07/12/2017, tricuspid endocarditis) . -- Currently resolved. Right lung abscess - Blood cx negative so far. Pleural fluid is growing Strep Viridans. - CT Chest shows right sided abscess. Patient underwent chest tube placement 07/14/2017 by IR. - Discussed with ID and CT surgery - both are okay for patient to go back to [facility]. Cardiothoracic surgery can be consulted at [facility] for further evaluation. Uveitis and endogenous endophthalmitis Left Retinal detachment - patient was seen by feeder/folder at [facility] - Patient was evaluated by feeder/folder Dr. Kowalski. Patient underwent ophthalmological surgical intervention on 07/12/2017 Korey Castellanos MD Jul 16, 2017 21:52
[2017-07-17] MEDS ORDERED: PHARMACY ORDERED LAB ONE (01:45)
== END 2017-07-16 20:21 | disposition short-term general hospital (02) | DRG 116 ==
LOC: N07B 07-11 00:08
PROVIDERS: ADMIT Internal Medicine; ATTEND Internal Medicine
PROC: 08DK3ZZ Extraction of Left Lens, Percutaneous Approach (ICD-10-PCS; 2017-07-11)
PROC: 08QF3ZZ Repair Left Retina, Percutaneous Approach (ICD-10-PCS; 2017-07-11)
PROC: 08T53ZZ Resection of Left Vitreous, Percutaneous Approach (ICD-10-PCS; principal; 2017-07-11 22:06)
PROC: 0W9930Z Drainage of Right Pleural Cavity with Drainage Device, Percutaneous Approach (ICD-10-PCS; 2017-07-14)
DX: H44.19 Other endophthalmitis (principal); A40.8 Other streptococcal sepsis; I33.0 Acute and subacute infective endocarditis; J86.9 Pyothorax without fistula; J85.2 Abscess of lung without pneumonia; H20.9 Unspecified iridocyclitis; H33.052 Total retinal detachment, left eye; H21.502 Unspecified adhesions of iris, left eye; Z87.891 Personal history of nicotine dependence; B19.20 Unspecified viral hepatitis C without hepatic coma; B95.4 Other streptococcus as the cause of diseases classified elsewhere; H26.9 Unspecified cataract
CPT/HCPCS: 32557; 71045; 71250; 76937; 80053; 80202; 80307; 81001; 82150; 82565; 82945; 83605; 83615; 83986; 84155; 84157; 84702; 85025; 85610; 85730; 86140; 87015; 87040; 87070; 87102; 87116; 87205; 87206; 88112; 88305; 89051; 93005; 93306; 99152; 99153; 99211; C1729; C1814; G0463; J0171; J0690; J0696; J1100; J2250; J2270; J2370; J2405; J3010; J3301; J3370; J7030; J7050